=== PATIENT | male | born 1975 | race Caucasian/White ===

== ENCOUNTER 2022-06-01 16:39 | Outpatient (CLI) | payer OTHER, SELFPAY ==
[2022-06-01 21:31] LABS: Basophils Absolute Auto 0.03 K/uL (0.00-0.30); Basophils Percent Auto 0.4 % (0.0-3.0); Eosinophils Absolute Auto 0.12 K/uL (0.00-0.50); Eosinophils Percent Auto 1.6 % (0.0-7.0); Hematocrit 36.7 % (37.0-53.0); Hemoglobin* 12.4 gm/dL (13.5-17.5); Immature Granulocytes Abs Auto 0.01 K/uL (0.00-0.30); Lymphocytes Absolute Auto 2.69 K/uL (0.90-2.90); Mean Corpuscular HGB Conc 34 gm/dL (32-36); Mean Corpuscular Hemoglobin 31 pg (26-34); Mean Corpuscular Volume 91 fL (80-100); Monocytes Percent Auto 6.9 % (0.0-11.0); Neutrophils Absolute Auto 4.31 K/uL (1.7-7.0); Platelet Count* 215 K/uL (140-440); RDW Coefficient of Variation % 11.9 % (11.5-15.5); Red Blood Count 4.04 m/uL (4.30-5.90); White Blood Count* 7.69 K/uL (4.50-11.00)
[2022-06-01 21:48] LABS: Slide Review Reflex No
== END 2022-06-01 16:40 | disposition home or self-care (01) ==
LOC: KYNREF 16:46
PROVIDERS: PCP Family Medicine; Visit Provider Nurse Practitioner Family
DX: R10.31 Right lower quadrant pain (principal)
CPT/HCPCS: 36415; 85025

== ENCOUNTER 2022-07-16 08:17 | Outpatient (CLI) | payer OTHER, SELFPAY ==
--- OUTSIDE RECORDS SUMMARY | 2022-07-16 08:22 | XMS_ITS | Clinical Summary ---
:1975 Author Organization [facility] [place] [address] Care Team Providers Name Role Phone Nonstaff, Doctor Unavailable Unavailable Andrews Wright MD Primary Care Provider Allergies Active Allergy Reactions Severity Noted Date Comments Cephalosporins *Unknown 12/19/2013 Cephalexin Rash 10/05/2006 Medications Medication Sig Dispensed Refills Start Date End Date Status IBUPROFEN 800 MG TAB prn 0 02/15/2007 Active OXYCODONE-ACETAMINOP take 1 tablet by 0 02/15/2007 Active HEN 5 MG-325 MG TAB oral route every 6 hours as needed ATENOLOL 50 MG TAB take 1 tablet (50mg) 30 0 02/15/2007 Active by oral route once daily lisinopril Take 10 mg by mouth 0 Active (PRINIVIL; ZESTRIL) once daily. 10 mg Indications: tabletIndications: HYPERTENSION hypertension PRAVASTATIN SODIUM Take by mouth. 0 Active (PRAVASTATIN ORAL) traMADol (ULTRAM) 50 Take 50 mg by mouth 0 Active mg tablet every 6 hours if needed. INDOMETHACIN ORAL Take by mouth. 0 Active diazepam (VALIUM) 5 Take 1 tablet by 6 tablet 0 12/19/2013 Active mg tablet mouth at bedtime. diazepam (VALIUM) 5 Take 1 tablet by 6 tablet 0 03/23/2015 Active mg mouth 3 times daily tabletIndications: if needed for Muscle Right-sided low back Spasm. pain without sciatica traMADol (ULTRAM) 50 Take 1 tablet by 6 tablet 0 03/23/2015 Active mg mouth every 6 hours tabletIndications: if needed for Pain. Right-sided low back pain without sciatica Active Problems Not on file Family History Medical History Relation Name Comments Hypertension Father Hypertension Paternal Grandmother Relation Name Status Comments Father Paternal Grandmother Social History Tobacco Use Types Packs/Day Years Used Date Current Every Day Smoker Cigarettes 0.5 Sta rted: 10/21/1992 Alcohol Use Standard Drinks/Week Comments Not Asked 0 (1 standard drink = 0.6 oz pure alcoho l) Sex Assigned at Date Recorded Not on file Obstetrics History Last Filed Vital Signs Vital Sign Reading Time Taken Comments Blood Pressure 150/97 01/02/2018 8:00 PM CDT Pulse 106 01/02/2018 8:05 PM CDT Temperature 36.5 ??C (97.7 ??F) 01/02/2018 5:07 PM CDT Respiratory Rate 16 01/02/2018 8:00 PM CDT Oxygen Saturation 98% 01/02/2018 8:05 PM CDT Inhaled Oxygen Concentration - - Weight 127 kg (280 lb) 01/02/2018 5:07 PM CDT Height 182.9 cm (6') 01/02/2018 5:07 PM CDT Body Mass Index 37.97 01/02/2018 5:07 PM CDT Plan of Treatment Health Maintenance Due Date Last Done Comments COVID-19 vaccine series (#1) 04/01/1976 Tdap 1986 Depression screening for age 12+ 1987 BMI (ht and wt on same day) for age 18+ 1993 Hepatitis C screening for age 18-79 1993 Tetanus booster 1995 Colonoscopy through age 75 2020 Lipids for age 45-75 2020 Influenza for age 9-49 06/03/2022 Results Not on filefrom Last 3 Months Insurance Payer Benefit Plan Subscriber ID Effective Dates Phone Address Type / Group WC WORKERS WC 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 [id number] Effective for [phone] [address] COMP COMP all dates [address] [place] [address] HEALTH HP [id number] 2015-Presen [address] [place] [address] [employer]UE [employer]OSS BL[employer] OF [id number] 2014-[place] [address] [address] [place] [address] (Home) [place] [id number] Chun Nash Personal/Family Self [address] (Home) [place] [id number] [employer] Workers Comp Self 1975 [address] (Home) [place] [address] [employer] Workers Comp Self 1975 [address] [facility] ([place] [place] [address] 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
[2022-07-16 15:53] LABS: Hematocrit 37.9 % (37.0-53.0); Hemoglobin* 12.8 gm/dL (13.5-17.5); Mean Corpuscular HGB Conc 34 gm/dL (32-36); Mean Corpuscular Hemoglobin 31 pg (26-34); Mean Corpuscular Volume 92 fL (80-100); Platelet Count* 207 K/uL (140-440); Red Blood Count 4.12 m/uL (4.30-5.90); White Blood Count* 6.31 K/uL (4.50-11.00)
[2022-07-16 15:55] LABS: Albumin* 4.9 g/dL (3.3-5.0); Chloride* 102 mmol/L (96-114); Slide Review Reflex No
[2022-07-16 15:56] LABS: Potassium* 4.5 mmol/L (3.6-5.1); Sodium* 137 mmol/L (135-149)
[2022-07-16 15:58] LABS: Alanine Aminotransferase* 33 U/L (4-50); Alkaline Phosphatase* 76 U/L (40-150); Aspartate Amino Transferase* 26 U/L (12-35); Bilirubin Total* 0.4 mg/dL (0.1-1.5); Blood Urea Nitrogen* 23 mg/dL (5-24); Carbon Dioxide* 23 mmol/L (20-32); Cholesterol* 178 mg/dL (90-199); Estimated Glomerular Filt Rate 94 ml/min; Glucose* 135 mg/dL (60-115); Total Protein* 7.3 g/dL (6.0-8.3)
[2022-07-16 15:59] LABS: Calcium* 9.8 mg/dL (8.4-10.6); HDL Cholesterol* 33 mg/dL (>=40); LDL Cholesterol Calculated 99 mg/dL (<100); Triglycerides* 229 mg/dL (40-149)
== END 2022-07-16 08:18 | disposition home or self-care (01) ==
PROVIDERS: PCP Family Medicine; Visit Provider Family Medicine
DX: Z00.00 Encounter for general adult medical examination without abnormal findings (principal); E78.5 Hyperlipidemia, unspecified
CPT/HCPCS: 36415; 80053; 80061; 85027

== ENCOUNTER 2022-07-29 14:47 | Outpatient (CLI) | payer OTHER, SELFPAY ==
--- OUTSIDE RECORDS SUMMARY | 2022-07-29 14:50 | XMS_ITS | Clinical Summary ---
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
[2022-07-29 22:30] LABS: Creatinine Urine 231.8 mg/dL
[2022-07-29 22:32] LABS: Microalbumin Creatinine Ratio 0 mg/g (0-30); Microalbumin Urine 1 mg/dL
== END 2022-07-29 14:48 | disposition home or self-care (01) ==
LOC: LKVREF 14:48
PROVIDERS: PCP Family Medicine; Visit Provider Family Medicine
DX: Z00.00 Encounter for general adult medical examination without abnormal findings (principal); E11.9 Type 2 diabetes mellitus without complications; I10 Essential (primary) hypertension
CPT/HCPCS: 82043; 82570

== ENCOUNTER 2023-01-24 16:00 | Outpatient (CLI) | payer OTHER, SELFPAY ==
--- OUTSIDE RECORDS SUMMARY | 2023-01-24 16:07 | XMS_ITS | Continuity of Care Document ---
Author Name Unknown Organization [facility] alissa Address [address] [facility] [place] [address] Phone Care Team Providers Care Salesperson Women'S Dresses Name Role Phone Murray Garay Unavailable Unavailable Allergies, Adverse Reactions, Alerts Substance Reaction Status Criticality CEPHALEXIN MONOHYDRATE RashFever Active No In formation Medications Medication Instructions Dosage Effective Dates (start - stop) Status Comments hydrocodone 5 mg-acetaminophen 325 mg tablet take 1 tablet by oral route every 4 hours as needed for chronic pain; max 6/day - Active Fill when able OMEPRAZOLE (unknown strength) take 1 capsule by oral route every day before a meal Not Available - Active tizanidine 4 mg tablet take 1 tablet by ORAL route 2 times every day as needed, max 2/day 4 MG - Active pravastatin 40 mg tablet take 1 tablet by oral route every day 40 MG - Active Wellbutrin SR 100 mg tablet, 12 hr sustained-releas e take 1 tablet by oral route 2 times every day 100 MG - Active metformin ER 500 mg tablet,extended release 24 hr take 1 tablet by oral route every day with the evening meal 500 MG - Active diazepam 5 mg tablet take 1 tablet by ORAL route 2 times every day prn 5 MG - Active lisinopril 20 mg-hydrochloroth iazide 12.5 mg tablet take 1 tablet by oral route every day 1.00 tablet - Active hydrocodone 5 mg-acetaminophen 325 mg tablet take 1 tablet by oral route every 4 hours as needed for chronic pain; max 6/day - No Longer Active Fill when able Procedures Procedure Date Foll-up eval q3mo opiod tx OFFICE VISIT, EST TELEMEDICINE 23 Foll-up eval q3mo opiod tx OFFICE/OUTPATIENT VISIT, EST Drug Urine Toxology With Chromatography Drug test def 8-14 classes Foll-up eval q3mo opiod tx OFFICE VISIT, EST TELEMEDICINE Foll-up eval q3mo opiod tx OFFICE VISIT, EST TELEMEDICINE Drug Urine Toxology With Chromatography Drug test def 8-14 classes Foll-up eval q3mo opiod tx OFFICE/OUTPATIENT VISIT, EST Foll-up eval q3mo opiod tx OFFICE VISIT, EST TELEMEDICINE Foll-up eval q3mo opiod tx OFFICE VISIT, EST TELEMEDICINE Foll-up eval q3mo opiod tx OFFICE/OUTPATIENT VISIT, EST Drug test def 8-14 classes Drug Urine Toxology With Chromatography Foll-up eval q3mo opiod tx OFFICE VISIT, EST TELEMEDICINE Foll-up eval q3mo opiod tx OFFICE VISIT, EST TELEMEDICINE Foll-up eval q3mo opiod tx OFFICE VISIT, EST TELEMEDICINE Foll-up eval q3mo opiod tx OFFICE VISIT, EST TELEMEDICINE 22 Foll-up eval q3mo opiod tx OFFICE VISIT, EST TELEMEDICINE Foll-up eval q3mo opiod tx OFFICE/OUTPATIENT VISIT, EST Drug Urine Toxology With Chromatography Drug test def 8-14 classes Foll-up eval q3mo opiod tx OFFICE VISIT, EST TELEMEDICINE Feb-04-20 22 Foll-up eval q3mo opiod tx OFFICE VISIT, EST TELEMEDICINE Foll-up eval q3mo opiod tx OFFICE VISIT, EST TELEMEDICINE Foll-up eval q3mo opiod tx OFFICE VISIT, EST TELEMEDICINE Foll-up eval q3mo opiod tx OFFICE VISIT, EST TELEMEDICINE Foll-up eval q3mo opiod tx OFFICE VISIT, EST TELEMEDICINE Foll-up eval q3mo opiod tx OFFICE VISIT, EST TELEMEDICINE Drug Urine Toxology With Chromatography Foll-up eval q3mo opiod tx OFFICE/OUTPATIENT VISIT, EST Foll-up eval q3mo opiod tx OFFICE VISIT, EST TELEMEDICINE OFFICE VISIT, EST TELEMEDICINE Foll-up eval q3mo opiod tx Foll-up eval q3mo opiod tx OFFICE VISIT, EST TELEMEDICINE OFFICE VISIT, EST TELEMEDICINE Foll-up eval q3mo opiod tx OFFICE VISIT, EST TELEMEDICINE Foll-up eval q3mo opiod tx Foll-up eval q3mo opiod tx OFFICE VISIT, EST TELEMEDICINE Foll-up eval q3mo opiod tx OFFICE VISIT, EST TELEMEDICINE OFFICE VISIT, EST TELEMEDICINE Foll-up eval q3mo opiod tx OFFICE VISIT, EST TELEMEDICINE Foll-up eval q3mo opiod tx OFFICE VISIT, EST TELEMEDICINE Foll-up eval q3mo opiod tx OFFICE VISIT, EST TELEMEDICINE Foll-up eval q3mo opiod tx OFFICE VISIT, EST TELEMEDICINE Davy-17-20 20 Foll-up eval q3mo opiod tx OFFICE VISIT, EST TELEMEDICINE Foll-up eval q3mo opiod tx Foll-up eval q3mo opiod tx OFFICE/OUTPATIENT VISIT, EST OFFICE VISIT, EST TELEMEDICINE Foll-up eval q3mo opiod tx OFFICE VISIT, EST TELEMEDICINE Drug test def 15-21 classes Drug Urine Toxology With Chromatography Foll-up eval q3mo opiod tx OFFICE/OUTPATIENT VISIT, EST OFFICE/OUTPATIENT VISIT, EST Foll-up eval q3mo opiod tx OFFICE/OUTPATIENT VISIT, EST Foll-up eval q3mo opiod tx OFFICE/OUTPATIENT VISIT, EST Foll-up eval q3mo opiod tx OFFICE/OUTPATIENT VISIT, EST OFFICE/OUTPATIENT VISIT, EST OFFICE/OUTPATIENT VISIT, EST OFFICE/OUTPATIENT VISIT, EST OFFICE/OUTPATIENT VISIT, EST Lidocaine injection Inj, durolane RT Major Joint Or Bursa Inj With Ultraso und OFFICE/OUTPATIENT VISIT, EST OFFICE/OUTPATIENT VISIT, EST OFFICE CONSULTATION Drug test def 22+ classes Drug Urine Toxology With Chromatography Advance Directives Directive Yes / No Effective Date File Name No Information Encounters Encounter Description Practice Location Reason(s) For Visit Diagnoses Date Provider Providers Copied on Encounter OFFICE VISIT, EST TELEMEDICINE [facility], [address] [place], [place], [id number] , [place] tel:[phone] [facility] [place] right knee pain (chief complaint) Other chronic painOther chondrocalcinosis , right kneeUnilateral primary osteoarthritis, right kneePain in right kneeCurrent tear of meniscus of left knee, sequelaLong term (current) use of opiate analgesic Apr-0 4-202 3 Jonelle Gao. [address] [place] [address] [address], [place], [place], [id number] , [place]. tel: [phone] Referring Provider: Andrews Wright [facility] [address], [place], [address]. tel:[phone] OFFICE/OUTPAT IENT VISIT, [facility], [address], [place], [id number] , [place] tel: [phone] [facility] right knee pain (chief complaint) Other chronic painOther chondrocalcinosis , right kneeUnilateral primary osteoarthritis, right kneePain in right kneeCurrent tear of meniscus of left knee, sequelaLong term (current) use of opiate analgesic Dec-0 3 Jonelle Gao. [address] [place] [address] [address], [place], [id number] , [place]. tel: [phone] Referring Provider: Andrews Wright [facility] [address], [place], [address]. tel:[phone] [facility], [address], [place], [id number] , [place] tel: [phone] [facility] No Information 0 3 Jonelle Gao. [address] [place] [address] [address], [place], [id number] , [place]. tel: [phone] Referring Provider: Andrews Wright [facility] [address], [place], [address]. tel:[phone] OFFICE VISIT, EST TELEMEDICINE [facility], [address], [place], [id number] , [place] tel: [phone] [facility] [place] right knee pain (chief complaint) Other chronic painOther chondrocalcinosis , right kneeUnilateral primary osteoarthritis, right kneePain in right kneeCurrent tear of meniscus of left knee, sequelaLong term (current) use of opiate analgesic Nov-0 3 Jonelle Gao[address] [place] [address] [address], [place], [place], [id number] , [place]. tel: [phone] Referring Provider: Caleb Castro, [address] [place], [address]. tel:[phone] OFFICE VISIT, [facility] TELEMEDICINE [facility], [address] [place] [address], [id number] , [place] tel: [phone] [facility] right knee pain (chief complaint) Other chronic painOther chondrocalcinosis , right kneeUnilateral primary osteoarthritis, right kneePain in right kneeCurrent tear of meniscus of left knee, sequelaLong term (current) use of opiate analgesic Oct- 3 Sal Murray. [address] [place] [address] [address], [place], [place], [id number] , [place]. tel: [phone] [facility], [address] [place] [address], [id number] , [place] tel: [phone] [facility] No Information 2 Sal Murray. [address] [place] [address] [address], [place], [place], [id number] , [place]. tel: [phone] OFFICE/OUTPAT IENT VISIT, [facility], [address] [place] [address], [id number] , [place] tel: [phone] [facility] right knee pain (chief complaint) Other chronic painOther chondrocalcinosis , right kneeUnilateral primary osteoarthritis, right kneePain in right kneeCurrent tear of meniscus of left knee, sequelaLong term (current) use of opiate analgesic 2 Sal Murray. [address] [place] [address] [address], [place], [place], [id number] , [place]. tel: [phone] Referring Provider: Andrews Wright, [facility] [address], [place], [address]. tel:[phone] OFFICE VISIT, EST TELEMEDICINE [facility], [address] [place] [address], [id number] , [place] tel: [phone] [facility] [place] right knee pain (chief complaint) Other chronic painOther chondrocalcinosis , right kneeUnilateral primary osteoarthritis, right kneePain in right kneeCurrent tear of meniscus of left knee, sequelaLong term (current) use of opiate analgesic Nov-0 2 Jonelle Gao. [address] [place] [address] [address], [place], [place], [id number] , [place]. tel: [phone] Referring Provider: Caleb Castro, [address] [place], [address]. tel:[phone] OFFICE VISIT, [facility] TELEMEDICINE [facility], [address] [place] [address], [id number] , [place] tel: [phone] [facility] right knee pain (chief complaint) Other chronic painOther chondrocalcinosis , right kneeUnilateral primary osteoarthritis, right kneePain in right kneeCurrent tear of meniscus of left knee, sequelaLong term (current) use of opiate analgesic Jul-0 2 Jonelle Gao. [address] [place] [address] [address], [place], [place], [id number] , [place]. tel: [phone] OFFICE/OUTPAT IENT VISIT, [facility], [address] [place] [address], [id number] , [place] tel: [phone] [facility] right knee pain (chief complaint) Other chronic painOther chondrocalcinosis , right kneeUnilateral primary osteoarthritis, right kneePain in right kneeCurrent tear of meniscus of left knee, sequelaLong term (current) use of opiate analgesic Sep-0 2 Jonelle Gao. [address] [place] [address] [address], [place], [place], [id number] , [place]. tel: [phone] Referring Provider: Andrews Wright, [facility] [address], [place], [address]. tel:[phone] [facility], [address], [place], [id number] , [place] tel: [phone] [facility] No Information Sep-0 2 Jonelle Gao. [address] [place] [address] [address], [place], [place], [id number] , [place]. tel: [phone] Referring Provider: Andrews Wright, [facility] [address], [place], [address]. tel:[phone] OFFICE VISIT, EST TELEMEDICINE [facility], [address] [place] [address], [id number] , [place] tel: [phone] [facility] right knee pain (chief complaint) Other chronic painOther chondrocalcinosis , right kneeUnilateral primary osteoarthritis, right kneePain in right kneeCurrent tear of meniscus of left knee, sequelaLong term (current) use of opiate analgesic May- 2 Jonelle Gao. [address] [place] [address], [place], [place], [id number] , [place]. tel: [phone] OFFICE VISIT, EST [facility], [address] [place] [address], [id number] , [place] tel: [phone] [facility] right knee pain (chief complaint) Other chronic painOther chondrocalcinosis , right kneeUnilateral primary osteoarthritis, right kneePain in right kneeCurrent tear of meniscus of left knee, sequelaLong term (current) use of opiate analgesic Apr-0 2 Sal Murray. [address] [place] [address] [address], [place], [place], [id number] , [place]. tel: [phone] OFFICE VISIT, EST [facility], [address] [place] [address], [id number] , [place] tel: [phone] [facility] Knee Pain (chief complaint) Other chronic painOther chondrocalcinosis , right kneeUnilateral primary osteoarthritis, right kneeCurrent tear of meniscus of left knee, sequelaLong term (current) use of opiate analgesicPain in right knee Jose- 2 Sal Murray. [address] [place] [address] [address], [place], [place], [id number] , [place]. tel: [phone] Referring Provider: Caleb Castro, [address] [place], [address]. tel: [phone] OFFICE VISIT, [facility] TELEMEDICINE [facility], [address] [place] [address], [id number] , [place] tel: [phone] [facility] bilateral knee pain (chief complaint) Other chronic painOther chondrocalcinosis , right kneeUnilateral primary osteoarthritis, right kneeCurrent tear of meniscus of left knee, sequelaLong term (current) use of opiate analgesic May-0 2 Jonelle Gao. [address] [place] [address] [address], [place], [place], [id number] , [place]. tel: [phone] OFFICE VISIT, [facility], [address] [place] [address], [id number] , [place] tel: [phone] [facility] bilateral knee pain (chief complaint) Other chronic painOther chondrocalcinosis , right kneeUnilateral primary osteoarthritis, right kneeCurrent tear of meniscus of left knee, sequelaLong term (current) use of opiate analgesic Apr-0 - 2 Sal Murray. [address] [place] [address] [address], [place], [place], [id number] , [place]. tel: [phone] Referring Provider: Caleb Castro, [address] [place] [address], [address]. tel:[phone] OFFICE/OUTPAT IENT VISIT, [facility], [address] [place] [address], [id number] , [place] tel: [phone] [facility] bilateral knee pain (chief complaint) Other chronic painUnilateral primary osteoarthritis, right kneeOther chondrocalcinosis , right kneeLong term (current) use of opiate analgesicCurrent tear of meniscus of left knee, sequela Mar-0 2 Jonelle Gao. [address] [place] [address] [address], [place], [place], [id number] , [place]. tel: [phone] Referring Provider: Andrews Wright, [facility] [address], [place], [address]. tel:[phone] [facility], [address] [place] [address], [id number] , [place] tel: [phone] [facility] [place] No Information 2 Jonelle Gao. [address] [place] [address] [address], [place], [place], [id number] , [place]. tel: [phone] Referring Provider: Caleb Castro, [address] [place] [address], [address]. [phone] OFFICE VISIT, EST TELEMEDICINE [facility], [address] [place] [address], [id number] , [place] tel: [phone] [facility] bilateral knee pain (chief complaint) Other chronic painUnilateral primary osteoarthritis, right kneeOther chondrocalcinosis , right kneeLong term (current) use of opiate analgesicCurrent tear of meniscus of left knee, sequela 2 Sal Murray. [address] [place] [address] [address], [place], [place], [id number] , [place]. tel: [phone] Referring Provider: Caleb Castro, [address] [place] [address], [address]. tel:[phone] OFFICE VISIT, EST TELEMEDICINE [facility], [address] [place] [address], [id number] , [place] tel: [phone] [facility] Knee Pain (chief complaint) Other chronic painUnilateral primary osteoarthritis, right kneeOther chondrocalcinosis , right kneeLong term (current) use of opiate analgesicCurrent tear of meniscus of left knee, sequela 2 Jonelle Gao. [address] [place] [address] [address], [place], [place], [id number] , [place]. tel: [phone] OFFICE VISIT, EST TELEMEDICINE [facility], [address] [place] [address], [id number] , [place] tel: [phone] [facility] bilateral knee pain (chief complaint) Other chronic painUnilateral primary osteoarthritis, right kneeOther chondrocalcinosis , right kneeLong term (current) use of opiate analgesicCurrent tear of meniscus of left knee, sequela 1 Jonelle Gao. [address] [place] [address] [address], [place], [id number] , [place]. tel: [phone] OFFICE VISIT, EST TELEMEDICINE [facility], [address] [place] [address], [id number] , [place] tel: [phone] [facility] bilateral knee pain (chief complaint) Other chronic painUnilateral primary osteoarthritis, right kneeOther chondrocalcinosis , right kneeLong term (current) use of opiate analgesic 1 Salkushal Gao. [address] [place] [address] [address], [place], [id number] , [place]. tel: [phone] Referring Provider: Caleb Castro, [address] [place] [address], [address]. tel:[phone] OFFICE VISIT, EST TELEMEDICINE [facility], [address] [place] [address], [id number] , [place] tel: [phone] [facility] [place] right knee pain (chief complaint) Other chronic painUnilateral primary osteoarthritis, right kneeOther chondrocalcinosis , right kneeLong term (current) use of opiate analgesic Oct-0 - 1 Saljorge Gao. [address] [place] [address] [address], [place], [id number] , [place]. tel: [phone] OFFICE VISIT, EST TELEMEDICINE [facility], [address] [place] [address], [id number] , [place] tel: [phone] [facility] right knee pain (chief complaint) Other chronic painUnilateral primary osteoarthritis, right kneeOther chondrocalcinosis , right kneeLong term (current) use of opiate analgesic Sep- 0- 1 Salkushal Gao. [address] [place] [address] [address], [place], [id number] , [place]. tel: [phone] Referring Provider: Caleb Castro, [address] [place] [address], [address]. tel:[phone] OFFICE VISIT, EST TELEMEDICINE [facility], [address] [place] [address], [id number] , [place] tel: [phone] [facility] right knee pain (chief complaint) Other chondrocalcinosis , right kneeUnilateral primary osteoarthritis, right kneeOther chronic painLong term (current) use of opiate analgesic 1 Sal Murray. [address] [place] [address] [address], [place], [place], [id number] , [place]. tel: [phone] Referring Provider: Caleb Castro, [address] [place] [address], [address]. tel:[phone] [facility], [address] [place] [address], [id number] , [place] tel: [phone] [facility] No Information 1 Nicolas Ellis. [address] [place] [address], [id number] , [place]. tel: [phone] [facility], [address] [place] [address], [id number] , [place] tel: [phone] [facility] No Information 1 Jonelle Gao. [address] [place] [address] [address], [place], [place], [id number] , [place]. tel: [phone] Referring Provider: Caleb Castro, [address] [place] [address], [address]. tel:[phone] OFFICE/OUTPAT IENT VISIT, [facility], [address] [place] [address], [id number] , [place] tel: [phone] [facility] right knee pain (chief complaint) Other chondrocalcinosis , right kneeUnilateral primary osteoarthritis, right kneeOther chronic painLong term (current) use of opiate analgesic 1 Jonelle Gao. [address] [place] [address] [address], [place], [place], [id number] , [place]. tel: [phone] Referring Provider: Andrews Wright [facility] [address], [place], [address]. tel:[phone] OFFICE VISIT, EST TELEMEDICINE [facility], [address] [place] [address], [id number] , [place] tel: [phone] [facility] [place] Knee Pain (chief complaint) Other chondrocalcinosis , right kneeUnilateral primary osteoarthritis, right kneeOther chronic painLong term (current) use of opiate analgesic Jose-0 1 Saljorge Gao. [facility] [address], [place], [place], [id number] , [place]. tel: [phone] Referring Provider: Caleb Castro, [address] [place] [address], [address]. tel:[phone] OFFICE VISIT, EST TELEMEDICINE [facility], [address] [place] [address], [id number] , [place] tel:[phone] [facility] Knee Pain (chief complaint) Other chondrocalcinosis , right kneeUnilateral primary osteoarthritis, right kneeOther chronic painLong term (current) use of opiate analgesic May-0 1 Sal Murray. [address] [place] [address] [address], [place], [place], [id number] , [place]. tel:[phone] Referring Provider: Caleb Castro, [address] [place] [address], [address]. [phone] OFFICE VISIT, EST TELEMEDICINE [facility], [address] [place] [address], [id number] , [place] tel: [phone] [facility] Knee Pain (chief complaint) Other chondrocalcinosis , right kneeUnilateral primary osteoarthritis, right kneeOther chronic painLong term (current) use of opiate analgesic Apr-0 1 Saljorge Gao. [address] [place] [address] [address], [place], [place], [id number] , [place]. tel:[phone] Referring Provider: Caleb Castro, [address] [place] [address], [address]. tel:[phone] OFFICE VISIT, EST TELEMEDICINE [facility], [address] [place] [address], [id number] , [place] tel:[phone] [facility] Knee Pain (chief complaint) Other chondrocalcinosis , right kneeUnilateral primary osteoarthritis, right kneeOther chronic painLong term (current) use of opiate analgesic Dec-0 1 Saljorge Gao. [address] [place] [address] [address], [place], [place], [id number] , [place]. [phone] Referring Provider: Caleb Castro, [address] [place] [address], [address]. [phone] OFFICE VISIT, EST TELEMEDICINE [facility], [address] [place] [address], [id number] , [place] tel:[phone] [facility] Knee Pain (chief complaint) Other chondrocalcinosis , right kneeUnilateral primary osteoarthritis, right kneeOther chronic painLong term (current) use of opiate analgesic Nov- 1 Salojrge Gao. [address] [place] [address] [address], [place], [place], [id number] , [place]. [phone] Referring Provider: aCleb Castro, [address] [place] [address], [address]. [phone] OFFICE VISIT, EST TELEMEDICINE [facility], [address] [place] [address], [id number] , [place] tel:[phone] [facility] Knee Pain (chief complaint) Other chondrocalcinosis , right kneeUnilateral primary osteoarthritis, right kneeOther chronic painLong term (current) use of opiate analgesic Oct-0 1 Jonelle Gao. [address] [place] [address] [address], [place], [place], [id number] , [place]. tel:[phone] Referring Provider: Caleb Castro, [address] [place] [address], [address]. [phone] OFFICE VISIT, EST TELEMEDICINE [facility], [address] [place] [address], [id number] , [place] [phone] [facility] K[facility] Pain (chief complaint) Other chondrocalcinosis , right kneeUnilateral primary osteoarthritis, right kneeOther chronic painLong term (current) use of opiate analgesic Sep-0 0 Sal Murray. [address] [place] [address] [address], [place], [place], [id number] , [place]. [phone] Referring Provider: Caleb Castro, [address] [place] [address], [id number]. tel:[phone] OFFICE VISIT, EST TELEMEDICINE [facility], [address] [place] [address], [id number] , [place] [phone] [facility] Knee Pain (chief complaint) Other chondrocalcinosis , right kneeUnilateral primary osteoarthritis, right kneeOther chronic painLong term (current) use of opiate analgesic Nov-0 0 Sal Murray. [address] [facility] [address], [place], [place], [id number] , [place]. [phone] Referring Provider: Caleb Castro, [address] [place] [address], [address]. tel:[phone] OFFICE VISIT, EST TELEMEDICINE [facility], [address] [place] [address], [id number] , [place] [phone] [facility] Knee Pain (chief complaint) Other chondrocalcinosis , right kneeUnilateral primary osteoarthritis, right kneeOther chronic painLong term (current) use of opiate analgesic 0 Sal Murray. [address], [place], [place], [id number] , [place]. [phone] Referring Provider: Caleb Castro, [address] [place] [address], [address]. tel:[phone] OFFICE VISIT, EST TELEMEDICINE [facility], [address] [place] [address], [id number] , [place] [phone] [facility] Knee Pain (chief complaint) Other chondrocalcinosis , right kneeUnilateral primary osteoarthritis, right kneeOther chronic painLong term (current) use of opiate analgesic Jun- 0 Sal Murray. [address] [facility] [address], [place], [place], [id number] , [place]. [phone] Referring Provider: Caleb Castro, [address] [place] [address], [address]. [phone] OFFICE VISIT, [facility], [address] [place] [address], [id number] , [place] tel:[phone] [facility] Knee Pain (chief complaint) Other chondrocalcinosis , right kneeUnilateral primary osteoarthritis, right kneeOther chronic painLong term (current) use of opiate analgesic 0 Sal Murray. [address] [place] [address] [address], [place], [place], [id number] , [place]. tel:[phone] Referring Provider: Caleb Castro, [address] [place] [address], [address]. tel:[phone] OFFICE VISIT, [facility], [address] [place] [address], [id number] , [place] tel:[phone] [facility] Knee Pain (chief complaint) Other chondrocalcinosis , right kneeUnilateral primary osteoarthritis, right kneeOther chronic painLong term (current) use of opiate analgesic 0 Sal Murray. [address] [place] [address] [address], [place], [place], [id number] , [place]. tel:[phone] Referring Provider: Caleb Castro, [address] [place] [address], [address]. [phone] OFFICE VISIT, [facility], [address] [place] [address], [id number] , [place] tel:[phone] [facility] right knee pain (chief complaint) Other chondrocalcinosis , right kneeUnilateral primary osteoarthritis, right kneeOther chronic painLong term (current) use of opiate analgesic 0 Sal Murray. [address] [place] [address] [address], [place], [place], [id number] , [place]. tel:[phone] Referring Provider: Caleb Castro, [address] [place] [address], [address]. tel:[phone] OFFICE/OUTPAT IENT VISIT, [facility], [address] [place] [address], [id number] , [place] tel:[phone] [facility] right knee pain (chief complaint) Other chondrocalcinosis , right kneeUnilateral primary osteoarthritis, right kneeOther chronic painLong term (current) use of opiate analgesic May-0 8- 0 Sal Murray. [address] [facility] [address], [place], [place], [id number] , [place]. tel:[phone] Referring Provider: Caleb Castro, [address] [place] [address], [address]. [phone] OFFICE VISIT, [facility], [address] [place] [address], [id number] , [place] tel:[phone] [facility] right knee pain (chief complaint) Other chondrocalcinosis , right kneeUnilateral primary osteoarthritis, right kneeOther chronic painLong term (current) use of opiate analgesic Apr-1 0- 0 Sal Murray. [address] [place] [address] [address], [place], [place], [id number] , [place]. tel:[phone] Referring Provider: Caleb Castro, [address] [place] [address], [address]. [phone] OFFICE/OUTPAT IENT VISIT, [facility], [address] [place] [address], [id number] , [place] tel:[phone] [facility] right knee pain (chief complaint) light bulb replacer (current) use of opiate analgesicOther chondrocalcinosis , right kneePain in right kneeUnilateral primary osteoarthritis, right kneeOther chronic pain Dec- 3- 0 Sal Murray. [facility] [address], [place], [place], [id number] , [place]. [phone] Referring Provider: Andrews Wright, [facility] [address], [place], [address]. [phone] OFFICE/OUTPAT IENT VISIT, [facility], [address] [place] [address], [id number] , [place] [phone] [facility] right knee pain (chief complaint) intermediate (current) use of opiate analgesicOther chondrocalcinosis , right kneePain in right kneeUnilateral primary osteoarthritis, right kneeOther chronic pain 0 Jonelle Gao. [address] [facility] [address], [place], [place], [id number] , [place]. tel:[phone] Referring Provider: Andrews Wright [facility] [address], [place], [address]. tel:[phone] OFFICE/OUTPAT IENT VISIT, [facility], [address] [place], [place], [id number] , [place] tel: [phone] [facility] right knee pain (chief complaint) intermediate (current) use of opiate analgesicUnilater al primary osteoarthritis, right kneePain in right kneeOther chondrocalcinosis , right kneeOther chronic pain 0 Jonelle Gao. [address] [facility] [address], [place], [place], [id number] , [place]. tel:[phone] Referring Provider: Andrews Wright [facility] [address], [place], [address]. tel:[phone] OFFICE/OUTPAT IENT VISIT, [facility], [address] [place], [place], [id number] , [place] tel:[phone] [facility] right knee pain (chief complaint) light bulb replacer (current) use of opiate analgesicUnilater al primary osteoarthritis, right kneePain in right kneeOther chondrocalcinosis , right kneeOther chronic pain 201 9 Salkushal Gao. [address] [place] [address] [address], [place], [place], [id number] , [place]. tel:[phone] Referring Provider: Andrews Wright [facility] [address], [place], [address]. tel:[phone] OFFICE/OUTPAT IENT VISIT, [facility], [address] [place], [place], [id number] , [place] tel:[phone] [facility] Knee Pain (chief complaint) light bulb replacer (current) use of opiate analgesicOther chondrocalcinosis , right kneePain in right kneeUnilateral primary osteoarthritis, right knee Nov- 5-201 9 Jonelle Gao. [address] [facility] [address], [place], [id number] , [place]. tel: [phone] Referring Provider: Andrews Wright [facility] [address], [place], [address]. tel:[phone] OFFICE/OUTPAT IENT VISIT, [facility], [address] [place], [place], [id number] , [place] tel: [phone] [facility] right knee pain (chief complaint) intermediate (current) use of opiate analgesicOther chondrocalcinosis , right kneeUnilateral primary osteoarthritis, right kneePain in right kneeOther chronic pain Oct- 8-201 9 Jonelle Gao. [address] [facility] [address], [place], [id number] , [place]. tel: [phone] Referring Provider: Andrews Wright [facility] [address], [place], [address]. tel:[phone] OFFICE/OUTPAT IENT VISIT, [facility], [address] [place] [address], [id number] , [place] tel: [phone] [facility] right knee pain (chief complaint) intermediate (current) use of opiate analgesicOther chondrocalcinosis , right kneePain in right kneeUnilateral primary osteoarthritis, right knee Sep-2 0-201 9 Jonelle Gao. [address] [facility] [address], [place], [id number] , [place]. tel: [phone] Referring Provider: Andrews Wright [facility] [address], [place], [address]. tel:[phone] OFFICE/OUTPAT IENT VISIT, [facility], [address] [place], [place], [id number] , [place] tel: [phone] [facility] right knee pain (chief complaint) Other chronic painUnilateral primary osteoarthritis, right kneeOther chondrocalcinosis , right kneeLong term (current) use of opiate analgesic 9 Saljorge Gao. [address] [facility] [address], [place], [id number] , [place]. tel: [phone] Referring Provider: Andrews Wright [facility] [address], [place], [address]. tel:[phone] OFFICE/OUTPAT IENT VISIT, [facility], [address] [place], [place], [id number] , [place] tel: [phone] [facility] right knee pain (chief complaint) Other chronic painUnilateral primary osteoarthritis, right kneeOther chondrocalcinosis , right kneeLong term (current) use of opiate analgesic 9 Sal Murray. [address] [facility] [address], [place], [place], [id number] , [place]. tel: [phone] Referring Provider: Andrews Wright [facility] [address], [place], [address]. tel:[phone] [facility], [address] [place], [place], [id number] , [place] tel: [phone] [facility] Unilateral primary osteoarthritis, right knee 9 Reynoldsprem Mackay. [facility], [address] [facility] [address], [place], [address], [place]. tel: [phone] Referring Provider: Andrews Wright [facility] [address], [place], [address]. tel:[phone] OFFICE/OUTPAT IENT VISIT, [facility], [address] [place], [place], [id number] , [place] tel: [phone] [facility] [place] right knee pain (chief complaint) Other chronic painUnilateral primary osteoarthritis, right kneeOther chondrocalcinosis , right kneeLong term (current) use of opiate analgesic 9 Saljorge Gao. [address] [facility] [address], [place], [id number] , [place]. tel:[phone] Referring Provider: Andrews Wright [facility] [address], [place], [address]. tel:[phone] OFFICE/OUTPAT IENT VISIT, EST [facility], [address] [place], [place], [id number] , [place] [phone] [facility] right knee pain (chief complaint) Other chondrocalcinosis , right kneeOther chronic painPain in right kneeLong term (current) use of opiate analgesicUnilater al primary osteoarthritis, right knee 9 Salkushal Gao. [address] [place] [address] [address], [place], [place], [id number] , [place]. tel:[phone] Referring Provider: Andrews Wright [facility] [address], [place], [address]. tel:[phone] OFFICE CONSULTATION [facility], [address] [place], [place], [id number] , [place] [phone] [facility] right knee pain (chief complaint) Other chronic painPain in right kneeOther chondrocalcinosis , right knee 9 Reynolds Thompson. [facility], [address] [facility] [address], [place], [address], [place]. tel:[phone] Referring Provider: [facility] [address], [place], [address]. tel:[phone] Family History Family Member Type Diagnosis Age At Onset No Information Payers Payer name Insurance type Covered green party ID Meng eveangel[facility]s) [facility] [id number] Social History Type Description Quantity Date Captured Comments Alcohol Use Details Unknown Caffeine Use Details Unknown Tobacco Use Status Smoking Status No Information Sex Male Chief Complaint And Reason For Visit From encounter dated '01/04/2023 15:00'. right knee pain (chief complaint). Description: Duration: chronic. Severity level is 7. It occurs constantly and is worsening. Location: right knee. Reason For Referral Reason For Referral No Information Plan Of Treatment Date Type Action Status Goal Tobacco Use. Due on due Goal AST (SGOT). Due on due Goal Review Allergy List. Due on due Goal Order Annual PT. Due on due Goal OARS. Due on due Goal GENERAL ASSEMBLER INSTALLER Scanned. Due on due Goal Unhealthy drug u se screening. Due on due Goal ALT (SGPT). Due on due Goal Creatinine. Due on due Goal STEAM HEATING INSTALLER Paperwork. Due on due Goal Weight. Due on d ue Goal Height. Due on d ue Goal UDT. Due on due Goal Hepatitis C scre ening. Due on due Goal Lipid panel. Due on due Goal Update Social Hi story. Due on due Goal PHQ-9. Due on du e Goal Medication Recon ciliation. Due on due Goal UDT. Due on due Goal Update Social Hi story. Due on due Goal ALT (SGPT). Due on due Goal Creatinine. Due on due Goal Hepatitis C scre ening. Due on due Goal Unhealthy drug u se screening. Due on due Goal Height. Due on d ue Goal GENERAL ASSEMBLER INSTALLER Scanned. Due on due Goal AST (SGOT). Due on due Goal Tobacco Use. Due on due Goal PHQ-9. Due on du e Goal Weight. Due on d ue Goal Medication Recon ciliation. Due on due Goal Order Annual PT. Due on due Goal STEAM HEATING INSTALLER Paperwork. Due on due Goal OARS. Due on due Goal Lipid panel. Due on due Goal Review Allergy List. Due on due Goal Tobacco Use. Due on due Goal Review Allergy List. Due on due Goal Update Social Hi story. Due on due Goal OARS. Due on due Goal GENERAL ASSEMBLER INSTALLER Scanned. Due on due Goal Weight. Due on d ue Goal Order Annual PT. Due on due Goal Lipid panel. Due on due Goal PHQ-9. Due on du e Goal Height. Due on d ue Goal Hepatitis C scre ening. Due on due Goal Creatinine. Due on due Goal AST (SGOT). Due on due Goal Medication Recon ciliation. Due on due Goal ALT (SGPT). Due on due Goal STEAM HEATING INSTALLER Paperwork. Due on due Goal Unhealthy drug u se screening. Due on due Goal UDT. Due on due Goal Medication Recon ciliation. Due on due Goal Update Social Hi story. Due on due Goal Hepatitis C scre ening. Due on due Goal Height. Due on d ue Goal Weight. Due on d ue Goal Tobacco Use. Due on due Goal OARS. Due on due Goal AST (SGOT). Due on due Goal UDT. Due on due Goal STEAM HEATING INSTALLER Paperwork. Due on due Goal GENERAL ASSEMBLER INSTALLER Scanned. Due on due Goal Unhealthy drug u se screening. Due on due Goal Creatinine. Due on due Goal ALT (SGPT). Due on due Goal Order Annual PT. Due on due Goal Review Allergy List. Due on due Goal Lipid panel. Due on due Goal PHQ-9. Due on du e Goal AST (SGOT). Due on due Goal OARS. Due on due Goal Creatinine. Due on due Goal ALT (SGPT). Due on due Goal Review Allergy List. Due on due Goal PHQ-9. Due on du e Goal UDT. Due on due Goal GENERAL ASSEMBLER INSTALLER Scanned. Due on due Goal Order Annual PT. Due on due Goal Medication Recon ciliation. Due on due Goal Tobacco Use. Due on 023 due Goal Weight. Due on d ue Goal Height. Due on d ue Goal Lipid panel. Due on 023 due Goal Update Social Hi story. Due on due Goal Hepatitis C scre ening. Due on due Goal Unhealthy drug u se screening. Due on due Goal STEAM HEATING INSTALLER Paperwork. Due on due Goal Order Annual PT. Due on due Goal UDT. Due on due Goal GENERAL ASSEMBLER INSTALLER Scanned. Due on due Goal AST (SGOT). Due on due Goal OARS. Due on due Goal Creatinine. Due on due Goal ALT (SGPT). Due on due Goal STEAM HEATING INSTALLER Paperwork. Due on due Goal Medication Recon ciliation. Due on due Goal Lipid panel. Due on due Goal Tobacco Use. Due on due Goal Unhealthy drug u se screening. Due on due Goal Review Allergy List. Due on due Goal Weight. Due on d ue Goal Hepatitis C scre ening. Due on due Goal PHQ-9. Due on du e Goal Height. Due on d ue Goal Update Social Hi story. Due on due Goal Unhealthy drug u se screening. Due on due Goal GENERAL ASSEMBLER INSTALLER Scanned. Due on due Goal UDT. Due on due Goal AST (SGOT). Due on due Goal Creatinine. Due on due Goal Height. Due on d ue Goal Medication Recon ciliation. Due on due Goal Tobacco Use. Due on due Goal ALT (SGPT). Due on due Goal PHQ-9. Due on du e Goal Update Social Hi story. Due on due Goal STEAM HEATING INSTALLER Paperwork. Due on due Goal Hepatitis C scre ening. Due on due Goal Order Annual PT. Due on due Goal OARS. Due on due Goal Weight. Due on d ue Goal Review Allergy List. Due on due Goal Lipid panel. Due on due Goal UDT. Due on due Goal ALT (SGPT). Due on due Goal Creatinine. Due on due Goal AST (SGOT). Due on due Goal Medication Recon ciliation. Due on due Goal Update Social Hi story. Due on due Goal Weight. Due on d ue Goal Tobacco Use. Due on due Goal Unhealthy drug u se screening. Due on due Goal GENERAL ASSEMBLER INSTALLER Scanned. Due on due Goal STEAM HEATING INSTALLER Paperwork. Due on due Goal Order Annual PT. Due on due Goal Lipid panel. Due on due Goal Review Allergy List. Due on due Goal OARS. Due on due Goal PHQ-9. Due on du e Goal Hepatitis C scre ening. Due on due Goal Height. Due on d ue Goal UDT. Due on due Goal ALT (SGPT). Due on due Goal Review Allergy List. Due on due Goal PHQ-9. Due on du e Goal Unhealthy drug u se screening. Due on due Goal Medication Recon ciliation. Due on due Goal Hepatitis C scre ening. Due on due Goal AST (SGOT). Due on due Goal OARS. Due on due Goal Tobacco Use. Due on due Goal Height. Due on d ue Goal Weight. Due on d ue Goal Lipid panel. Due on due Goal Order Annual PT. Due on due Goal STEAM HEATING INSTALLER Paperwork. Due on due Goal GENERAL ASSEMBLER INSTALLER Scanned. Due on due Goal Update Social Hi story. Due on due Goal Creatinine. Due on due Goal PHQ-9. Due on du e Goal Update Social Hi story. Due on due Goal OARS. Due on due Goal AST (SGOT). Due on due Goal Weight. Due on d ue Goal Unhealthy drug u se screening. Due on due Goal Order Annual PT. Due on due Goal UDT. Due on due Goal ALT (SGPT). Due on due Goal Medication Recon ciliation. Due on due Goal Lipid panel. Due on due Goal Tobacco Use. Due on due Goal Creatinine. Due on due Goal GENERAL ASSEMBLER INSTALLER Scanned. Due on due Goal Height. Due on d ue Goal Review Allergy List. Due on due Goal Hepatitis C scre ening. Due on due Goal STEAM HEATING INSTALLER Paperwork. Due on due Goal GENERAL ASSEMBLER INSTALLER Scanned. Due on due Goal Tobacco Use. Due on due Goal ALT (SGPT). Due on due Goal STEAM HEATING INSTALLER Paperwork. Due on due Goal Review Allergy List. Due on due Goal AST (SGOT). Due on due Goal UDT. Due on due Goal Order Annual PT. Due on due Goal OARS. Due on due Goal Creatinine. Due on due Goal Lipid panel. Due on due Goal Weight. Due on d ue Goal Medication Recon ciliation. Due on due Goal Update Social Hi story. Due on due Goal Hepatitis C scre ening. Due on due Goal Height. Due on d ue Goal Unhealthy drug u se screening. Due on due Goal PHQ-9. Due on du e Goal AST (SGOT). Due on due Goal OARS. Due on due Goal Order Annual PT. Due on due Goal UDT. Due on due Goal Creatinine. Due on due Goal GENERAL ASSEMBLER INSTALLER Scanned. Due on due Goal STEAM HEATING INSTALLER Paperwork. Due on due Goal ALT (SGPT). Due on due Goal Medication Recon ciliation. Due on due Goal Update Social Hi story. Due on due Goal PHQ-9. Due on du e Goal Review Allergy List. Due on due Goal Unhealthy drug u se screening. Due on due Goal Lipid panel. Due on due Goal Height. Due on d ue Goal Tobacco Use. Due on due Goal Hepatitis C scre ening. Due on due Goal Weight. Due on d ue Goal ALT (SGPT). Due on due Goal PHQ-9. Due on du e Goal OARS. Due on due Goal UDT. Due on due Goal Lipid panel. Due on due Goal Height. Due on d ue Goal Medication Recon ciliation. Due on due Goal STEAM HEATING INSTALLER Paperwork. Due on due Goal Weight. Due on d ue Goal Order Annual PT. Due on due Goal AST (SGOT). Due on due Goal GENERAL ASSEMBLER INSTALLER Scanned. Due on due Goal Unhealthy drug u se screening. Due on due Goal Hepatitis C scre ening. Due on due Goal Creatinine. Due on due Goal Update Social Hi story. Due on due Goal Review Allergy List. Due on due Goal Tobacco Use. Due on due Goal Creatinine. Due on due Goal STEAM HEATING INSTALLER Paperwork. Due on due Goal AST (SGOT). Due on due Goal OARS. Due on due Goal Unhealthy drug u se screening. Due on due Goal UDT. Due on due Goal GENERAL ASSEMBLER INSTALLER Scanned. Due on due Goal Hepatitis C scre ening. Due on due Goal Lipid panel. Due on due Goal PHQ-9. Due on du e Goal Order Annual PT. Due on due Goal Medication Recon ciliation. Due on due Goal Tobacco Use. Due on due Goal Height. Due on d ue Goal ALT (SGPT). Due on due Goal Review Allergy List. Due on due Goal Update Social Hi story. Due on due Goal Weight. Due on d ue Goal OARS. Due on due Goal PHQ-9. Due on du e Goal Lipid panel. Due on due Goal Review Allergy List. Due on due Goal Weight. Due on d ue Goal Order Annual PT. Due on due Goal Medication Recon ciliation. Due on due Goal AST (SGOT). Due on due Goal STEAM HEATING INSTALLER Paperwork. Due on due Goal Unhealthy drug u se screening. Due on due Goal GENERAL ASSEMBLER INSTALLER Scanned. Due on due Goal UDT. Due on due Goal Creatinine. Due on due Goal Hepatitis C scre ening. Due on due Goal Height. Due on d ue Goal ALT (SGPT). Due on due Goal Update Social Hi story. Due on due Goal Tobacco Use. Due on due Goal AST (SGOT). Due on due Goal UDT. Due on due Goal Creatinine. Due on due Goal ALT (SGPT). Due on due Goal Order Annual PT. Due on due Goal Weight. Due on d ue Goal Review Allergy List. Due on due Goal Unhealthy drug u se screening. Due on due Goal STEAM HEATING INSTALLER Paperwork. Due on due Goal Lipid panel. Due on due Goal Hepatitis C scre ening. Due on due Goal PHQ-9. Due on du e Goal Height. Due on d ue Goal Medication Recon ciliation. Due on due Goal Update Social Hi story. Due on due Goal Tobacco Use. Due on due Goal OARS. Due on due Goal GENERAL ASSEMBLER INSTALLER Scanned. Due on due Goal AST (SGOT). Due on due Goal PHQ-9. Due on du e Goal Weight. Due on d ue Goal UDT. Due on due Goal ALT (SGPT). Due on due Goal Creatinine. Due on due Goal GENERAL ASSEMBLER INSTALLER Scanned. Due on due Goal Order Annual PT. Due on due Goal OARS. Due on due Goal Update Social Hi story. Due on due Goal Medication Recon ciliation. Due on due Goal STEAM HEATING INSTALLER Paperwork. Due on due Goal Height. Due on d ue Goal Tobacco Use. Due on due Goal Review Allergy List. Due on due Goal Medication Recon ciliation. Due on due Goal PHQ-9. Due on du e Goal Weight. Due on d ue Goal AST (SGOT). Due on due Goal Order Annual PT. Due on due Goal Height. Due on d ue Goal OARS. Due on due Goal GENERAL ASSEMBLER INSTALLER Scanned. Due on due Goal ALT (SGPT). Due on due Goal UDT. Due on due Goal Review Allergy List. Due on due Goal STEAM HEATING INSTALLER Paperwork. Due on due Goal Update Social Hi story. Due on due Goal Creatinine. Due on due Goal Tobacco Use. Due on due Goal OARS. Due on due Goal Creatinine. Due on due Goal ALT (SGPT). Due on due Goal AST (SGOT). Due on due Goal GENERAL ASSEMBLER INSTALLER Scanned. Due on due Goal UDT. Due on due Goal Update Social Hi story. Due on due Goal Height. Due on d ue Goal Order Annual PT. Due on due Goal Medication Recon ciliation. Due on due Goal Weight. Due on d ue Goal Tobacco Use. Due on due Goal STEAM HEATING INSTALLER Paperwork. Due on due Goal Review Allergy List. Due on due Goal PHQ-9. Due on du e Goal Medication Recon ciliation. Due on due Goal Review Allergy List. Due on due Goal Update Social Hi story. Due on due Goal Height. Due on d ue Goal Creatinine. Due on due Goal UDT. Due on due Goal Tobacco Use. Due on due Goal STEAM HEATING INSTALLER Paperwork. Due on due Goal Order Annual PT. Due on due Goal ALT (SGPT). Due on due Goal AST (SGOT). Due on due Goal GENERAL ASSEMBLER INSTALLER Scanned. Due on due Goal Weight. Due on d ue Goal OARS. Due on due Goal PHQ-9. Due on du e Goal STEAM HEATING INSTALLER Paperwork. Due on due Goal PHQ-9. Due on du e Goal Creatinine. Due on due Goal Update Social Hi story. Due on due Goal Review Allergy List. Due on due Goal Order Annual PT. Due on due Goal Weight. Due on d ue Goal Height. Due on d ue Goal OARS. Due on due Goal GENERAL ASSEMBLER INSTALLER Scanned. Due on due Goal AST (SGOT). Due on due Goal ALT (SGPT). Due on due Goal Medication Recon ciliation. Due on due Goal UDT. Due on due Goal Tobacco Use. Due on due Goal Creatinine. Due on due Goal Weight. Due on d ue Goal Height. Due on d ue Goal Update Social Hi story. Due on due Goal OARS. Due on due Goal AST (SGOT). Due on due Goal STEAM HEATING INSTALLER Paperwork. Due on due Goal GENERAL ASSEMBLER INSTALLER Scanned. Due on due Goal ALT (SGPT). Due on due Goal Tobacco Use. Due on due Goal Review Allergy List. Due on due Goal Medication Recon ciliation. Due on due Goal Order Annual PT. Due on due Goal UDT. Due on due Goal PHQ-9. Due on du e Goal Review Allergy List. Due on due Goal Tobacco Use. Due on due Goal Update Social Hi story. Due on due Goal GENERAL ASSEMBLER INSTALLER Scanned. Due on due Goal STEAM HEATING INSTALLER Paperwork. Due on due Goal Height. Due on d ue Goal ALT (SGPT). Due on due Goal AST (SGOT). Due on due Goal OARS. Due on due Goal Creatinine. Due on due Goal Order Annual PT. Due on due Goal PHQ-9. Due on du e Goal Weight. Due on d ue Goal Medication Recon ciliation. Due on due Goal UDT. Due on due Goal AST (SGOT). Due on due Goal Tobacco Use. Due on due Goal Height. Due on d ue Goal PHQ-9. Due on du e Goal Review Allergy List. Due on due Goal Creatinine. Due on due Goal GENERAL ASSEMBLER INSTALLER Scanned. Due on due Goal STEAM HEATING INSTALLER Paperwork. Due on due Goal Medication Recon ciliation. Due on due Goal Weight. Due on d ue Goal OARS. Due on due Goal ALT (SGPT). Due on due Goal UDT. Due on due Goal Update Social Hi story. Due on due Goal Order Annual PT. Due on due Goal Creatinine. Due on due Goal Order Annual PT. Due on due Goal STEAM HEATING INSTALLER Paperwork. Due on due Goal Height. Due on d ue Goal OARS. Due on due Goal GENERAL ASSEMBLER INSTALLER Scanned. Due on due Goal Weight. Due on d ue Goal PHQ-9. Due on du e Goal UDT. Due on due Goal Update Social Hi story. Due on due Goal Review Allergy List. Due on due Goal ALT (SGPT). Due on due Goal Tobacco Use. Due on due Goal AST (SGOT). Due on due Goal Medication Recon ciliation. Due on due Goal Weight. Due on d ue Goal UDT. Due on due Goal ALT (SGPT). Due on due Goal STEAM HEATING INSTALLER Paperwork. Due on due Goal Order Annual PT. Due on due Goal Creatinine. Due on due Goal Review Allergy List. Due on due Goal OARS. Due on due Goal AST (SGOT). Due on due Goal Update Social Hi story. Due on due Goal GENERAL ASSEMBLER INSTALLER Scanned. Due on due Goal Tobacco Use. Due on due Goal Medication Recon ciliation. Due on due Goal PHQ-9. Due on du e Goal Height. Due on d ue Goal GENERAL ASSEMBLER INSTALLER Scanned. Due on due Goal Weight. Due on d ue Goal Tobacco Use. Due on due Goal Update Social Hi story. Due on due Goal STEAM HEATING INSTALLER Paperwork. Due on due Goal Order Annual PT. Due on due Goal Creatinine. Due on due Goal ALT (SGPT). Due on due Goal Review Allergy List. Due on due Goal OARS. Due on due Goal Height. Due on d ue Goal AST (SGOT). Due on due Goal UDT. Due on due Goal PHQ-9. Due on du e Goal Medication Recon ciliation. Due on due Goal Height. Due on d ue Goal UDT. Due on due Goal AST (SGOT). Due on due Goal Weight. Due on d ue Goal Update Social Hi story. Due on due Goal OARS. Due on due Goal Review Allergy List. Due on due Goal Medication Recon ciliation. Due on due Goal Tobacco Use. Due on due Goal PHQ-9. Due on du e Goal Order Annual PT. Due on due Goal Creatinine. Due on due Goal GENERAL ASSEMBLER INSTALLER Scanned. Due on due Goal ALT (SGPT). Due on due Goal STEAM HEATING INSTALLER Paperwork. Due on due Goal Update Social Hi story. Due on due Goal Weight. Due on d ue Goal GENERAL ASSEMBLER INSTALLER Scanned. Due on due Goal Review Allergy List. Due on due Goal Creatinine. Due on due Goal UDT. Due on due Goal Tobacco Use. Due on due Goal OARS. Due on due Goal AST (SGOT). Due on due Goal ALT (SGPT). Due on due Goal Height. Due on d ue Goal STEAM HEATING INSTALLER Paperwork. Due on due Goal Order Annual PT. Due on due Goal Medication Recon ciliation. Due on due Goal PHQ-9. Due on du e Goal Tobacco cessation counseling completed Appointment Lior [facility]in BOOKED Future Order: Lab Order Drug Pat t Def 22+ Classes (G0483), Ordered on: Ordered Future Order: Lab Order COMPLIAN CE DRUG ANALYSIS, URINE, WITH MED REPORT ([id number]), Ordered on: Ordered Future Order: Lab Order Drug Pat t Def 22+ Classes ([id number]), Ordered on: Ordered History Of Present Illness Encounter Date Complaint History Of Prese nt Illness right knee pain Duration: chroni c. Severity level is 7. It occurs constantly and is worsening. Location: right knee. Comments: Chun is a 47 y/o male who presents for virtual follow up and medications refill in the setting of chronic BL knee pain (R>L). Pain has been worse this month. Notes the cold weather aggravates his pain. Plans to pursue knee injections through orthopedist. Plans to have arthroscopic surgery for L knee in the future through [facility].Of note, he has been dealing with some stress regarding his daughter being bullied at school.Reports current medication regimen provides 70% pain relief and allows for increased functionality. Presents with surplus of prescribed medication. Continues to utilize [place] 5-325mg with moderate benefit. Denies OIC or other side effects from current medication regimen. No other concerns today. right knee pain Duration: chroni c. Severity level is 2. It occurs constantly and is fluctuating. Location: right knee. The pain is aching. The pain is aggravated by bending, climbing (and descending) stairs, sitting, walking and standing. The pain is relieved by pain/RX meds, changing positions and lying down. Comments: Chun is a 47 y/o male who presents for follow up and medications refill in the setting of chronic BL knee pain (R>L). Pain has been fluctuating this month. Notes the cold weather aggravates his pain. Notes he has to spend a lot of time sitting and driving as his daughter has been traveling for volleyball. States ORDOÑEZ injection for R knee was unable to be completed at [facility], d/t not having correct equipment. Still expresses interest, but would like to complete at [facility] and not [facility]. Hopes to schedule with next in-clinic OV. Plans to have arthroscopic surgery for L knee in the future through [facility].Continues to have issues with WC.Reports current medication regimen provides 75% pain relief and allows for increased functionality. Presents with surplus of prescribed medication. Continues to utilize [place] 5-325mg with moderate benefit. Denies OIC or other side effects from current medication regimen. No other concerns today. Comments: Chun is a 47 y/o male who presents for virtual follow up and medications refill in the setting of chronic BL knee pain (R>L). Pain has been worse this month and he notes some increased knee stiffness d/t the cold weather. Requests ORDOÑEZ injection for R knee.Of note, his WC payment has gone through for L knee. Plans to have arthroscopic surgery in the future through [facility].Reports current medication regimen provides 80% pain relief and allows for increased functionality. Presents on track with prescribed medication. Continues to utilize [place] 5-325mg with moderate benefit. Denies OIC or other side effects from current medication regimen. No other concerns today. right knee pain Duration: chroni c. Severity level is 6. It occurs constantly and is worsening. Location: right knee. right knee pain Duration: chroni c. It occurs constantly and is stable. Location: right knee. Comments: Chun is a 47 y/o male who presents for virtual follow up and medications refill in the setting of chronic BL knee pain. Pain has been stable this month and he notes some increased knee stiffness d/t the cold weather.Reports current medication regimen provides 85% pain relief and allows for increased functionality. Continues to utilize [place] 5-325mg with moderate benefit. Denies OIC or other side effects from current medication regimen. No other concerns today. Comments: Chun is a 46 y/o male who presents for follow up and medications refill in the setting of chronic BL knee pain. Pain has been stable this month and he has been seeing a chiropractor w/ benefit. Continues to deal with insurance issues regarding seeing an orthopedist.Of note, he has been experiencing some stress d/t family issues.Reports current medication regimen provides 85% pain relief and allows for increased functionality. Presents with surplus of prescribed medication. Continues to utilize [place] 5-325mg with moderate benefit. Denies OIC or other side effects from current medication regimen. No other concerns today. right knee pain Duration: chroni c. Severity level is 3. It occurs constantly and is stable. Location: right knee. The pain is aching. The pain is aggravated by climbing (and descending) stairs, movement, walking and twisting. The pain is relieved by rest and lying down. Comments: Chun is a 46 y/o male who presents for virtual follow up and medications refill in the setting of chronic BL knee pain. Pain has been stable this month and he has been seeing a chiropractor w/ benefit. Continues to deal with insurance issues regarding seeing an orthopedist.Reports current medication regimen provides 75% pain relief and allows for increased functionality. Continues to utilize [place] 5-325mg with moderate benefit. Denies OIC or other side effects from current medication regimen. No other concerns today. right knee pain Duration: chroni c. It occurs constantly and is stable. Location: right knee. The pain is aching. The pain is aggravated by lifting, movement, walking and standing. The pain is relieved by heat, rest and stretching. right knee pain Duration: chroni c. Severity level is 7. It occurs constantly and is worsening. Location: right knee. Comments: Chun is a 46 y/o male who presents via [facility] for virtual follow up and medications refill in the setting of chronic BL knee pain. Pain has been worse this month. He states his L shoulder have been the most bothersome. Notes the shoulder pain is not currently on the same scale as the knee pain. Will plan to continue following up with his orthopedic doctor for further care regarding both ongoing issues.Reports current medication regimen provides 75% pain relief and allows for increased functionality. Continues to utilize [place] 5-325mg with moderate benefit. Denies OIC or other side effects from current medication regimen. No other concerns today. Comments: Chun is here for a follow up and medications refill. He is followed for bilateral knee pain. States pain has persisted and has been fluctuating over the last month. Notes recent flare while playing edge bags. Utilizing L knee brace currently.Of note, experiencing issues with surgeon he has been working with.Reports current medication regimen provides 80% pain relief and allows for increased functionality. Denies side effects from current medication regimen. Presents with surplus of prescribed medication. No other concerns today. right knee pain Duration: chroni c. Severity level is 3. It occurs intermittently and is fluctuating. Location: right knee. The pain is aching. The pain is aggravated by climbing (and descending) stairs and walking. The pain is relieved by rest and lying down. right knee pain Duration: chroni c. Severity level is 4. It occurs intermittently and is stable. Location: right knee. The pain is aching. The pain is aggravated by bending, climbing (and descending) stairs and walking. The pain is relieved by pain/RX meds and lying down. Comments: Chun is here for a virtual follow up and medications refill. He is followed for bilateral knee pain. States pain has persisted over the last month, but remains stable. Denies recent flares or any new concerns, regarding his pain. Of note, has been experiencing ups and downs with his family.Reports current medication regimen provides 80% pain relief and allows for increased functionality. Denies side effects from current medication regimen. Presents surplus of prescribed medication. No other concerns today. Comments: Chun is here for a virtual follow up and medications refill. He is followed for bilateral knee pain. States pain has persisted over the last month, but remains stable. He continues to await insurance appeal. Denies new concerns since last OV and requests a refill of current medication regimen.Reports current medication regimen provides 80% pain relief and allows for increased functionality. Denies side effects from current medication regimen. Presents on track with prescribed medication. No other concerns today. right knee pain Duration: chroni c. Severity level is 7. It occurs intermittently and is stable. Location: bilateral knee. The pain is aching. The pain is aggravated by bending, climbing (and descending) stairs, movement and walking. The pain is relieved by lying down. Knee Pain Duration: chroni c. Severity level is 7. It occurs intermittently and is stable. Location: knee. The pain is aching and sharp. The pain is aggravated by bending, climbing (and descending) stairs, movement, walking and twisting. The pain is relieved by lying down. Comments: Chun is here for a virtual follow up and medications refill. He is followed for bilateral knee pain. States pain has persisted over the last month, but remains stable. He continues to await insurance appeal. Denies new concerns since last OV and requests a refill of current medication regimen.States pain was worse during bad weather. Inquires about cortisone injections.Reports current medication regimen provides 80% pain relief and allows for increased functionality. Denies side effects from current medication regimen. Presents with a surplus of prescribed medication. No other concerns today. bilateral knee pain Duration: ch ronic. Severity level is 6. It occurs intermittently and is stable. Location: bilateral knee. The pain is aching and sharp. The pain is aggravated by bending, climbing (and descending) stairs and walking. The pain is relieved by pain/RX meds and lying down. Comments: Chun is here for a virtual follow up and medications refill. He is followed for bilateral knee pain. States pain has persisted over the last month. He feels the tear in his R knee is worsening. He continues to await insurance appeal. Denies new concerns since last OV and requests a refill of current medication regimen.Reports current medication regimen provides 80+% pain relief and allows for increased functionality. Denies side effects from current medication regimen.No other concerns today. bilateral knee pain Duration: ch ronic. Severity level is 7. It occurs intermittently and is stable. Location: bilateral knee. The pain is aggravated by climbing (and descending) stairs, movement and walking. The pain is relieved by rest. Comments: Chun is here for a virtual follow up and medications refill. He is followed for bilateral knee pain. States pain has persisted over the last month. He feels the tear in his R knee is worsening. He continues to await insurance appeal. Denies new concerns since last OV and requests a refill of current medication regimen.Reports current medication regimen provides 80+% pain relief and allows for increased functionality. Denies side effects from current medication regimen.No other concerns today. bilateral knee pain (comments) Raina churchill presents for a follow up and medication refill. He is followed for bilateral knee pain. Reports pain has been fluctuating. Left knee pain has been more bothersome than his R knee r/t torn meniscus. He continues to have issues with covering his knee surgery. Will continue to appeal. Of note, he recently got to his significant other who he's been with for 12 years.Reports current medication regimen provides 80% pain relief and allows for increased functionality. Denies side effects from current medication regimen. bilateral knee pain Duration: ch ronic. Severity level is 3. It occurs intermittently and is fluctuating. Location: bilateral knee. There is no radiation. The pain is sharp. The pain is aggravated by climbing (and descending) stairs, walking and standing. The pain is relieved by pain/RX meds and rest. bilateral knee pain (comments) Raina churchill is meeting with us today via [facility] Virtual Visit for follow up and medication refill. He is followed for bilateral knee pain. Left knee pain has been more bothersome than his R knee. However details both knees have been more painful which he attributes to ongoing stress. Of note, details ongoing emotional distress r/t his [id number]'s recent stage 4 cancer diagnosis. Reports current medication regimen provides 75% pain relief and allows for increased functionality. Denies side effects from current medication regimen. bilateral knee pain Duration: ch ronic. Severity level is 8. It occurs intermittently and is worsening. Location: bilateral knee and L knee. The pain is aching. The pain is aggravated by climbing (and descending) stairs and walking. The pain is relieved by pain/RX meds and rest. Knee Pain Duration: chroni c. Severity level is 8. It occurs constantly and is worsening. Location: bilateral knee. The pain is aching and sharp. The pain is aggravated by climbing (and descending) stairs and walking. The pain is relieved by pain/RX meds, rest and supine. Knee Pain (comments) Chun is me eting with us today via [facility] Virtual Visit for follow up and medication refill. Reports bilateral knee pain has persisted. He details frustration about having two painful knees. Since last OV, he has been sent to another provider for evaluation of L knee torn meniscus. He is frustrated as surgery with Dr. Morales must now be pushed out. Reports current medication regimen provides 80% pain relief and allows for increased functionality. Denies side effects from current medication regimen. bilateral knee pain Duration: ch ronic. Severity level is 7. It occurs intermittently and is stable. Location: bilateral knee. The pain is sharp. The pain is aggravated by climbing (and descending) stairs, walking and running. The pain is relieved by supine. bilateral knee pain (comments) Raina churchill is meeting with us today via [facility] Virtual Visit for follow up and medication refill. Reports bilateral knee pain has persisted.Since last OV, he had his L knee worked up through ortho. Per patient report he has a torn meniscus. He is currently awaiting insurance approval of surgery with Dr. Morales. He details frustration with being out of work for so long. Reports current medication regimen provides 80% pain relief and allows for increased functionality. Denies side effects from current medication regimen. bilateral knee pain Duration: ch ronic. Severity level is 7. It occurs constantly and is worsening. Location: bilateral knee. The pain is aching, burning and sharp. The pain is aggravated by climbing (and descending) stairs and walking. The pain is relieved by rest and supine. bilateral knee pain (comments) Raina churchill is meeting with us today via [facility] Virtual Visit for follow up and medication refill. Reports bilateral knee pain has persisted. States that he is planning to have a work-up of his L knee through ortho. Denies new chronic pain concerns. Remain uninterested in injections at this time. Reports current medication regimen provides 80% pain relief and allows for increased functionality. Denies side effects from current medication regimen.No other concerns today. right knee pain (comments) Chun is meeting with us today via [facility] Virtual Visit for follow up and medication refill. Right knee pain persists this month, but medication does help to some extent. Reports an onset of L knee pain. States the injury occurred at work. He has been trying to rest it, but pain has persisted. Plans to proceed with work-up through . Of note, he has lost all the weight he gained from being off his water pill. Reports current medication regimen provides 80% pain relief and allows for increased functionality. Denies side effects from current medication regimen.No other concerns today. right knee pain Duration: chroni c. It occurs constantly and is stable. Location: bilateral knees. The pain is aching, burning and sharp. The pain is aggravated by bending, climbing (and descending) stairs, lifting and movement. The pain is relieved by rest and meds. right knee pain (comments) Chun is meeting with us today via [facility] Virtual Visit for follow up and medication refill. Right knee pain persists this month, but medication does help to some extent. Of note, he states that his PCP took him off his water pill and he gained 23 pounds in two weeks. States he has not been feeling well. Called his PCP and restarted water pill yesterday. Reports current medication regimen provides 80% pain relief and allows for increased functionality. Denies side effects from current medication regimen.No other concerns today. right knee pain Duration: chroni c. It occurs constantly and is stable. Location: right knee. The pain is aching, burning and sharp. The pain is aggravated by bending, climbing (and descending) stairs, lifting and movement. The pain is relieved by pain/RX meds and rest. right knee pain Duration: chroni c. Severity level is 6. It occurs intermittently. Location: right knee. The pain is aching, burning and sharp. The pain is aggravated by climbing (and descending) stairs, movement, walking, running and stairs. The pain is relieved by supine. right knee pain (comments) hCun is meeting with us today via [facility] Virtual Visit for follow up and medication refill. Right knee pain persists this month, but medication does help to some extent. He is happy to declare that he has a grandson. Reports current medication regimen provides 80% pain relief and allows for increased functionality. Denies side effects from current medication regimen.No other concerns today. right knee pain (comments) Chun is here for follow-up and medication refills. Ongoing knee pain persists, tolerable with medication. Pain has been relatively stable with occasional flares. He is requests a refill of his current medication regimen as it allows him to complete his ADLs. Of note, states he has gained some weight since last OV. Reports current medication regimen provides at least 50% pain relief. Denies side effects from current medication regimen. No other concerns today. right knee pain Duration: chroni c. Severity level is 2. It occurs intermittently and is fluctuating. Location: right knee. The pain is sharp. The pain is aggravated by climbing (and descending) stairs and walking. The pain is relieved by lying down. Knee Pain Duration: chroni c. Severity level is 8. It occurs constantly and is stable. Location: bilateral knee. The pain is aggravated by bending, climbing (and descending) stairs, lifting, movement, walking and standing. The pain is relieved by heat, ice, pain/RX meds and rest. Knee Pain (comments) Chun is he re for follow-up and medication refills. Ongoing knee pain persists, tolerable with medication. Pain has been relatively stable with occasional flares. He recently received his COVID-19 vaccine which has resulted in some side effects. He is requests a refill of his current medication regimen as it allows him to complete his ADLs. Reports current medication regimen provides at least 50% pain relief. Denies side effects from current medication regimen. No other concerns today. Knee Pain (comments) Patient is here for follow-up and medication refills. Ongoing widespread pain persists, tolerable with medication. Pain has been worse this month d/t stressors. He had to quarantine last month d/t multiple COVID-19 exposures. He also had a close family member past away. He continues to lose weight and has lost a total of 25 pounds. His goal is to continue to lose weight so he is able to have surgery. He requests a medrol dose milla as he tweaked his back a couple days ago. He also would like to continue with the current medication regimen.Reports current medication regimen provides at least 50% pain relief. Denies side effects from current medication regimen. No other concerns today. Knee Pain Duration: chroni c. Severity level is 5. It occurs constantly and is stable. Location: bilateral knee. The pain is aching, dull and sharp. The pain is aggravated by bending, climbing stairs, lifting, movement and walking. The pain is relieved by heat, ice, pain/RX meds and rest. Knee Pain It occurs consta ntly. Location: bilateral knee. The pain is sharp. The pain is aggravated by bending, climbing (and descending) stairs, lifting and movement. Knee Pain (comments) Chun is he re today for follow up and medication management. Reports >50% relief with their current regimen and denies any side effects.States that his knee pain has been relatively stable over the past month. However, notes that he has had several abdominal flares. This is related to multiple hiatal hernias. Notes that he saw a surgeon who stated he would not perform surgery unless he lost weight and stopped smoking. In 3 weeks he has lost an intentional 20lbs. Continues to use his medications sparingly to maintain his lowest effective dose which explains his surplus today.Patient is not accompanied today and has no other questions or concerns. Knee Pain (comments) Chun is he re for virtual follow-up and medication refills. Ongoing knee pain persists, tolerable with medication. Pain has been worse. He has been experiencing severe abdominal pain for the last couple weeks and will be having a repeat hernia surgery within the next month. Requests a refill of his current medication regimen as it allows him to complete his ADLS.Reports current medication regimen provides at least 50% pain relief. Denies side effects from current medication regimen. No other concerns today. Knee Pain Duration: chroni c. Severity level is 4. It occurs constantly and is stable. Location: bilateral knee. The pain is aching, burning and sharp. The pain is aggravated by bending, climbing (and descending) stairs, lifting and movement. The pain is relieved by heat, ice, pain/RX meds and rest. Knee Pain (comments) Chun is he re for virtual follow-up and medication refills. Ongoing BL knee pain persists, tolerable with medication. Pain has been relatively stable with occasional flares related to the cold weather. He had to quarantine for two weeks since his daughter tested positive for COVID-19. Requests a refill of the current medication regimen as it allows him to work and complete his ADLs.Reports current medication regimen provides at least 50% pain relief. Denies side effects from current medication regimen. No other concerns today. Knee Pain Duration: chroni c. Severity level is 6. It occurs constantly and is stable. Location: knee. The pain is aggravated by bending, climbing (and descending) stairs, lifting and movement. Knee Pain Duration: chroni c. It occurs constantly and is stable. Location: knee. The pain is aching, burning and sharp. The pain is aggravated by bending, climbing (and descending) stairs, lifting, movement, pushing, walking and standing. The pain is relieved by heat, ice and pain/RX meds. Knee Pain (comments) Chun is he re for virtual follow-up and medication refills. Ongoing BL knee pain persists, tolerable with medication. Pain has remained stable with no changes this month. He would like to continue with the current medication regimen as it allows him to complete his ADLs and work without limitations. Reports current medication regimen provides at least 50% pain relief. Denies side effects from current medication regimen. No other concerns today. Knee Pain Duration: chroni c. Severity level is 7. It occurs constantly and is stable. Location: bilateral knee. The pain is aching, burning and sharp. The pain is aggravated by bending, climbing (and descending) stairs, lifting and movement. The pain is relieved by heat, ice, pain/RX meds and rest. Knee Pain (comments) Chun is he re for virtual follow-up and medication refills. Ongoing knee pain persist, tolerable with medication. Pain has been stable this month with no new changes. He would like to continue with the current medication regimen as it allows him to complete his ADLs and work without limitations.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
[2023-01-24 21:48] LABS: Basophils Absolute Auto 0.04 K/uL (0.00-0.30); Basophils Percent Auto 0.5 % (0.0-3.0); Chloride* 103 mmol/L (96-114); Eosinophils Absolute Auto 0.11 K/uL (0.00-0.50); Eosinophils Percent Auto 1.4 % (0.0-7.0); Hemoglobin* 12.6 gm/dL (13.5-17.5); Immature Granulocytes Abs Auto 0.02 K/uL (0.00-0.30); Immature Granulocytes Pct Auto 0.3 %; Lymphocytes Absolute Auto 2.63 K/uL (0.90-2.90); Lymphocytes Percent Auto 33.1 % (20-44); Mean Corpuscular HGB Conc 35 gm/dL (32-36); Mean Corpuscular Hemoglobin 32 pg (26-34); Mean Corpuscular Volume 90 fL (80-100); Monocytes Percent Auto 6.2 % (0.0-11.0); Neutrophils Absolute Auto 4.65 K/uL (1.7-7.0); Neutrophils Percent Auto 58.5 % (42.0-72.0); Platelet Count* 211 K/uL (140-440); Potassium* 3.8 mmol/L (3.6-5.1); RDW Coefficient of Variation % 12.2 % (11.5-15.5); Sodium* 137 mmol/L (135-149); White Blood Count* 7.94 K/uL (4.50-11.00)
[2023-01-24 21:50] LABS: Estimated Glomerular Filt Rate 93 ml/min
[2023-01-24 21:51] LABS: Blood Urea Nitrogen* 21 mg/dL (5-24); Calcium* 9.6 mg/dL (8.4-10.6); Carbon Dioxide* 25 mmol/L (20-32); Glucose* 119 mg/dL (60-115)
[2023-01-24 21:57] LABS: Slide Review Reflex No
[2023-01-24 22:04] LABS: Troponin I* < 0.01 ng/mL (0.01-0.04)
== END 2023-01-24 16:01 | disposition home or self-care (01) ==
PROVIDERS: PCP Family Medicine; Visit Provider Nurse Practitioner Family
DX: M25.512 Pain in left shoulder (principal); M17.11 Unilateral primary osteoarthritis, right knee
CPT/HCPCS: 36415; 80048; 84484; 85025

== ENCOUNTER 2023-02-01 15:30 | Outpatient (CLI) | payer OTHER, SELFPAY ==
--- OUTSIDE RECORDS SUMMARY | 2023-02-01 15:36 | XMS_ITS | Continuity of Care Document ---
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 [address] [place] [address] [address], [place], [place], [id number] , [place]. tel: [phone] Referring Provider: Andrews Wright [facility] [address], [place], [address]. tel:[phone] OFFICE/OUTPAT IENT VISIT, [facility], [address], [place], [id number] , [place] tel: [phone] [facility] right knee pain (chief complaint) Other chronic painOther chondrocalcinosis , right kneeUnilateral primary osteoarthritis, right kneePain in right kneeCurrent tear of meniscus of left knee, sequelaLong term (current) use of opiate analgesic Dec-0 3 Jonelle Gao. [address] [place] [address] [address], [place], [id number] , [place]. tel: [phone] Referring Provider: Andrews Wright [facility] [address], [place], [address]. tel:[phone] [facility], [address], [place], [id number] , [place] tel: [phone] [facility] No Information 0 3 Jonelle Gao. [address] [place] [address] [address], [place], [id number] , [place]. tel: [phone] Referring Provider: Andrews Wright [facility] [address], [place], [address]. tel:[phone] OFFICE VISIT, EST TELEMEDICINE [facility], [address], [place], [id number] , [place] tel: [phone] [facility] [place] right knee pain (chief complaint) Other chronic painOther chondrocalcinosis , right kneeUnilateral primary osteoarthritis, right kneePain in right kneeCurrent tear of meniscus of left knee, sequelaLong term (current) use of opiate analgesic Nov-0 3 Jonelle Gao. [address] [place] [address] [address], [place], [place], [id number] , [place]. tel: [phone] Referring Provider: Caleb Castro, [address] [place], [address]. tel:[phone] OFFICE VISIT, [facility] TELEMEDICINE [facility], [address] [place] [address], [id number] , [place] tel: [phone] [facility] right knee pain (chief complaint) Other chronic painOther chondrocalcinosis , right kneeUnilateral primary osteoarthritis, right kneePain in right kneeCurrent tear of meniscus of left knee, sequelaLong term (current) use of opiate analgesic Oct- 3 Sal Murray. [address] [place] [address] [address], [place], [place], [id number] , [place]. tel: [phone] [facility], [address] [place] [address], [id number] , [place] tel: [phone] [facility] No Information 2 Sal Murray. [address] [place] [address] [address], [place], [place], [id number] , [place]. tel: [phone] OFFICE/OUTPAT IENT VISIT, [facility], [address] [place] [address], [id number] , [place] tel: [phone] [facility] right knee pain (chief complaint) Other chronic painOther chondrocalcinosis , right kneeUnilateral primary osteoarthritis, right kneePain in right kneeCurrent tear of meniscus of left knee, sequelaLong term (current) use of opiate analgesic 2 Sal Murray. [address] [place] [address] [address], [place], [place], [id number] , [place]. tel: [phone] Referring Provider: Andrews Wright, [facility] [address], [place], [address]. tel:[phone] OFFICE VISIT, EST TELEMEDICINE [facility], [address] [place] [address], [id number] , [place] tel: [phone] [facility] [place] right knee pain (chief complaint) Other chronic painOther chondrocalcinosis , right kneeUnilateral primary osteoarthritis, right kneePain in right kneeCurrent tear of meniscus of left knee, sequelaLong term (current) use of opiate analgesic Nov-0 2 Jonelle Gao. [address] [place] [address] [address], [place], [place], [id number] , [place]. tel: [phone] Referring Provider: Caleb Castro, [address] [place], [address]. tel:[phone] OFFICE VISIT, [facility] TELEMEDICINE [facility], [address] [place] [address], [id number] , [place] tel: [phone] [facility] right knee pain (chief complaint) Other chronic painOther chondrocalcinosis , right kneeUnilateral primary osteoarthritis, right kneePain in right kneeCurrent tear of meniscus of left knee, sequelaLong term (current) use of opiate analgesic Jul-0 2 Jonelle Gao. [address] [place] [address] [address], [place], [place], [id number] , [place]. tel: [phone] OFFICE/OUTPAT IENT VISIT, [facility], [address] [place] [address], [id number] , [place] tel: [phone] [facility] right knee pain (chief complaint) Other chronic painOther chondrocalcinosis , right kneeUnilateral primary osteoarthritis, right kneePain in right kneeCurrent tear of meniscus of left knee, sequelaLong term (current) use of opiate analgesic Sep-0 2 Jonelle Gao. [address] [place] [address] [address], [place], [place], [id number] , [place]. tel: [phone] Referring Provider: Andrews Wright, [facility] [address], [place], [address]. tel:[phone] [facility], [address], [place], [id number] , [place] tel: [phone] [facility] No Information Sep-0 2 Jonelle Gao. [address] [place] [address] [address], [place], [place], [id number] , [place]. tel: [phone] Referring Provider: Andrews Wright, [facility] [address], [place], [address]. tel:[phone] OFFICE VISIT, EST TELEMEDICINE [facility], [address] [place] [address], [id number] , [place] tel: [phone] [facility] right knee pain (chief complaint) Other chronic painOther chondrocalcinosis , right kneeUnilateral primary osteoarthritis, right kneePain in right kneeCurrent tear of meniscus of left knee, sequelaLong term (current) use of opiate analgesic May- 2 Jonelle Gao. [address] [place] [address], [place], [place], [id number] , [place]. tel: [phone] OFFICE VISIT, EST [facility], [address] [place] [address], [id number] , [place] tel: [phone] [facility] right knee pain (chief complaint) Other chronic painOther chondrocalcinosis , right kneeUnilateral primary osteoarthritis, right kneePain in right kneeCurrent tear of meniscus of left knee, sequelaLong term (current) use of opiate analgesic Apr-0 2 Sal Murray. [address] [place] [address] [address], [place], [place], [id number] , [place]. tel: [phone] OFFICE VISIT, EST [facility], [address] [place] [address], [id number] , [place] tel: [phone] [facility] Knee Pain (chief complaint) Other chronic painOther chondrocalcinosis , right kneeUnilateral primary osteoarthritis, right kneeCurrent tear of meniscus of left knee, sequelaLong term (current) use of opiate analgesicPain in right knee Jose- 2 Sal Murray. [address] [place] [address], [place], [place], [id number] , [place]. tel: [phone] Referring Provider: Caleb Castro, [address] [place], [address]. tel: [phone] OFFICE VISIT, [facility] TELEMEDICINE [facility], [address] [place] [address], [id number] , [place] tel: [phone] [facility] bilateral knee pain (chief complaint) Other chronic painOther chondrocalcinosis , right kneeUnilateral primary osteoarthritis, right kneeCurrent tear of meniscus of left knee, sequelaLong term (current) use of opiate analgesic May-0 2 Jonelle Gao. [address] [place] [address] [address], [place], [place], [id number] , [place]. tel: [phone] OFFICE VISIT, [facility], [address] [place] [address], [id number] , [place] tel: [phone] [facility] bilateral knee pain (chief complaint) Other chronic painOther chondrocalcinosis , right kneeUnilateral primary osteoarthritis, right kneeCurrent tear of meniscus of left knee, sequelaLong term (current) use of opiate analgesic Apr-0 - 2 Sal Murray. [address] [place] [address] [address], [place], [place], [id number] , [place]. tel: [phone] Referring Provider: Caleb Castro, [address] [place] [address], [address]. tel:[phone] OFFICE/OUTPAT IENT VISIT, [facility], [address] [place] [address], [id number] , [place] tel: [phone] [facility] bilateral knee pain (chief complaint) Other chronic painUnilateral primary osteoarthritis, right kneeOther chondrocalcinosis , right kneeLong term (current) use of opiate analgesicCurrent tear of meniscus of left knee, sequela Mar-0 2 Jonelle Gao. [address] [place] [address] [address], [place], [place], [id number] , [place]. tel: [phone] Referring Provider: Andrews Wright, [facility] [address], [place], [address]. tel:[phone] [facility], [address] [place] [address], [id number] , [place] tel: [phone] [facility] [place] No Information 2 Jonelle Gao. [address] [place] [address] [address], [place], [place], [id number] , [place]. tel: [phone] Referring Provider: Caleb Castro, [address] [place] [address], [address]. [phone] OFFICE VISIT, EST TELEMEDICINE [facility], [address] [place] [address], [id number] , [place] tel: [phone] [facility] bilateral knee pain (chief complaint) Other chronic painUnilateral primary osteoarthritis, right kneeOther chondrocalcinosis , right kneeLong term (current) use of opiate analgesicCurrent tear of meniscus of left knee, sequela 2 Sal Murray. [address] [place] [address] [address], [place], [place], [id number] , [place]. tel: [phone] Referring Provider: Caleb Castro, [address] [place] [address], [address]. tel:[phone] OFFICE VISIT, EST TELEMEDICINE [facility], [address] [place] [address], [id number] , [place] tel: [phone] [facility] Knee Pain (chief complaint) Other chronic painUnilateral primary osteoarthritis, right kneeOther chondrocalcinosis , right kneeLong term (current) use of opiate analgesicCurrent tear of meniscus of left knee, sequela 2 Jonelle Gao. [address] [place] [address] [address], [place], [place], [id number] , [place]. tel: [phone] OFFICE VISIT, EST TELEMEDICINE [facility], [address] [place] [address], [id number] , [place] tel: [phone] [facility] bilateral knee pain (chief complaint) Other chronic painUnilateral primary osteoarthritis, right kneeOther chondrocalcinosis , right kneeLong term (current) use of opiate analgesicCurrent tear of meniscus of left knee, sequela 1 Jonelle Gao. [address] [place] [address] [address], [place], [id number] , [place]. tel: [phone] OFFICE VISIT, EST TELEMEDICINE [facility], [address] [place] [address], [id number] , [place] tel: [phone] [facility] bilateral knee pain (chief complaint) Other chronic painUnilateral primary osteoarthritis, right kneeOther chondrocalcinosis , right kneeLong term (current) use of opiate analgesic 1 Salkushal Gao. [address] [place] [address] [address], [place], [id number] , [place]. tel: [phone] Referring Provider: Caleb Castro, [address] [place] [address], [address]. tel:[phone] OFFICE VISIT, EST TELEMEDICINE [facility], [address] [place] [address], [id number] , [place] tel: [phone] [facility] [place] right knee pain (chief complaint) Other chronic painUnilateral primary osteoarthritis, right kneeOther chondrocalcinosis , right kneeLong term (current) use of opiate analgesic Oct-0 - 1 Saljorge Gao. [address] [place] [address] [address], [place], [id number] , [place]. tel: [phone] OFFICE VISIT, EST TELEMEDICINE [facility], [address] [place] [address], [id number] , [place] tel: [phone] [facility] right knee pain (chief complaint) Other chronic painUnilateral primary osteoarthritis, right kneeOther chondrocalcinosis , right kneeLong term (current) use of opiate analgesic Sep- 0- 1 Salkushal Gao. [address] [place] [address] [address], [place], [id number] , [place]. tel: [phone] Referring Provider: Caleb Castro, [address] [place] [address], [address]. tel:[phone] OFFICE VISIT, EST TELEMEDICINE [facility], [address] [place] [address], [id number] , [place] tel: [phone] [facility] right knee pain (chief complaint) Other chondrocalcinosis , right kneeUnilateral primary osteoarthritis, right kneeOther chronic painLong term (current) use of opiate analgesic 1 Sal Murray. [address] [place] [address] [address], [place], [place], [id number] , [place]. tel: [phone] Referring Provider: Caleb Castro, [address] [place] [address], [address]. tel:[phone] [facility], [address] [place] [address], [id number] , [place] tel: [phone] [facility] No Information 1 Nicolas Ellis. [address] [place] [address], [id number] , [place]. tel: [phone] [facility], [address] [place] [address], [id number] , [place] tel: [phone] [facility] No Information 1 Jonelle Gao. [address] [place] [address] [address], [place], [place], [id number] , [place]. tel: [phone] Referring Provider: Caleb Castro, [address] [place] [address], [address]. tel:[phone] OFFICE/OUTPAT IENT VISIT, [facility], [address] [place] [address], [id number] , [place] tel: [phone] [facility] right knee pain (chief complaint) Other chondrocalcinosis , right kneeUnilateral primary osteoarthritis, right kneeOther chronic painLong term (current) use of opiate analgesic 1 Jonelle Gao. [address] [place] [address] [address], [place], [place], [id number] , [place]. tel: [phone] Referring Provider: Andrews Wright [facility] [address], [place], [address]. tel:[phone] OFFICE VISIT, EST TELEMEDICINE [facility], [address] [place] [address], [id number] , [place] tel: [phone] [facility] [place] Knee Pain (chief complaint) Other chondrocalcinosis , right kneeUnilateral primary osteoarthritis, right kneeOther chronic painLong term (current) use of opiate analgesic Jose-0 1 Saljorge Gao. [facility] [address], [place], [place], [id number] , [place]. tel: [phone] Referring Provider: Caleb Castro, [address] [place] [address], [address]. tel:[phone] OFFICE VISIT, EST TELEMEDICINE [facility], [address] [place] [address], [id number] , [place] tel:[phone] [facility] Knee Pain (chief complaint) Other chondrocalcinosis , right kneeUnilateral primary osteoarthritis, right kneeOther chronic painLong term (current) use of opiate analgesic May-0 1 Sal Murray. [address] [place] [address] [address], [place], [place], [id number] , [place]. tel:[phone] Referring Provider: Caleb Castro, [address] [place] [address], [address]. [phone] OFFICE VISIT, EST TELEMEDICINE [facility], [address] [place] [address], [id number] , [place] tel: [phone] [facility] Knee Pain (chief complaint) Other chondrocalcinosis , right kneeUnilateral primary osteoarthritis, right kneeOther chronic painLong term (current) use of opiate analgesic Apr-0 1 Saljorge Gao. [address] [place] [address] [address], [place], [place], [id number] , [place]. tel:[phone] Referring Provider: Caleb Castro, [address] [place] [address], [address]. tel:[phone] OFFICE VISIT, EST TELEMEDICINE [facility], [address] [place] [address], [id number] , [place] tel:[phone] [facility] Knee Pain (chief complaint) Other chondrocalcinosis , right kneeUnilateral primary osteoarthritis, right kneeOther chronic painLong term (current) use of opiate analgesic Dec-0 1 Saljorge Gao. [address] [place] [address] [address], [place], [place], [id number] , [place]. [phone] Referring Provider: Caleb Castro, [address] [place] [address], [address]. [phone] OFFICE VISIT, EST TELEMEDICINE [facility], [address] [place] [address], [id number] , [place] tel:[phone] [facility] Knee Pain (chief complaint) Other chondrocalcinosis , right kneeUnilateral primary osteoarthritis, right kneeOther chronic painLong term (current) use of opiate analgesic Nov- 1 Saljorge Gao. [address] [place] [address] [address], [place], [place], [id number] , [place]. [phone] Referring Provider: Caleb Castro, [address] [place] [address], [address]. [phone] OFFICE VISIT, EST TELEMEDICINE [facility], [address] [place] [address], [id number] , [place] tel:[phone] [facility] Knee Pain (chief complaint) Other chondrocalcinosis , right kneeUnilateral primary osteoarthritis, right kneeOther chronic painLong term (current) use of opiate analgesic Oct-0 1 Jonelle Gao. [address] [place] [address] [address], [place], [place], [id number] , [place]. tel:[phone] Referring Provider: Caleb Castro, [address] [place] [address], [address]. [phone] OFFICE VISIT, EST TELEMEDICINE [facility], [address] [place] [address], [id number] , [place] [phone] [facility] Knee Pain (chief complaint) Other chondrocalcinosis , right kneeUnilateral primary osteoarthritis, right kneeOther chronic painLong term (current) use of opiate analgesic Sep-0 0 Sal Murray. [address] [place] [address] [address], [place], [place], [id number] , [place]. [phone] Referring Provider: Caleb Castro, [address] [place] [address], [address]. tel:[phone] OFFICE VISIT, EST TELEMEDICINE [facility], [address] [place] [address], [id number] , [place] [phone] [facility] Knee Pain (chief complaint) Other chondrocalcinosis , right kneeUnilateral primary osteoarthritis, right kneeOther chronic painLong term (current) use of opiate analgesic Nov-0 0 Sal Murray. [address] [facility] [address], [place], [place], [id number] , [place]. [phone] Referring Provider: Caleb Castro, [address] [place] [address], [address]. tel:[phone] OFFICE VISIT, EST TELEMEDICINE [facility], [address] [place] [address], [id number] , [place] [phone] [facility] Knee Pain (chief complaint) Other chondrocalcinosis , right kneeUnilateral primary osteoarthritis, right kneeOther chronic painLong term (current) use of opiate analgesic 0 Sal Murray. [address] [address] [address], [place], [place], [id number] , [place]. [phone] Referring Provider: Caleb Castro, [address] [place] [address], [address]. tel:[phone] OFFICE VISIT, EST TELEMEDICINE [facility], [address] [place] [address], [id number] , [place] [phone] [facility] Knee Pain (chief complaint) Other chondrocalcinosis , right kneeUnilateral primary osteoarthritis, right kneeOther chronic painLong term (current) use of opiate analgesic Jun- 0 Sal Murray. [address] [facility] [address], [place], [place], [id number] , [place]. [phone] Referring Provider: Caleb Castro, [address] [place] [address], [address]. [phone] OFFICE VISIT, [facility], [address] [place] [address], [id number] , [place] tel:[phone] [facility] [place] Knee Pain (chief complaint) Other chondrocalcinosis , right kneeUnilateral primary osteoarthritis, right kneeOther chronic painLong term (current) use of opiate analgesic 0 Sal Murray. [address] [place] [address] [address], [place], [place], [id number] , [place]. tel:[phone] Referring Provider: Caleb Castro, [address] [place] [address], [address]. tel:[phone] OFFICE VISIT, [facility], [address] [place] [address], [id number] , [place] tel:[phone] [facility] Knee Pain (chief complaint) Other chondrocalcinosis , right kneeUnilateral primary osteoarthritis, right kneeOther chronic painLong term (current) use of opiate analgesic 0 Sal Murray. [address] [place] [address] [address], [place], [place], [id number] , [place]. tel:[phone] Referring Provider: Caleb Castro, [address] [place] [address], [address]. [phone] OFFICE VISIT, [facility], [address] [place] [address], [id number] , [place] tel:[phone] [facility] right knee pain (chief complaint) Other chondrocalcinosis , right kneeUnilateral primary osteoarthritis, right kneeOther chronic painLong term (current) use of opiate analgesic 0 Sal Murray. [address] [place] [address] [address], [place], [place], [id number] , [place]. tel:[phone] Referring Provider: Caleb Castro, [address] [place] [address], [address]. tel:[phone] OFFICE/OUTPAT IENT VISIT, [facility], [address] [place] [address], [id number] , [place] tel:[phone] [facility] right knee pain (chief complaint) Other chondrocalcinosis , right kneeUnilateral primary osteoarthritis, right kneeOther chronic painLong term (current) use of opiate analgesic May-0 8- 0 Sal Murray. [address] [facility] [address], [place], [place], [id number] , [place]. tel:[phone] Referring Provider: Caleb Castro, [address] [place] [address], [address]. [phone] OFFICE VISIT, [facility], [address] [place] [address], [id number] , [place] tel:[phone] Telehealth right knee pain (chief complaint) Other chondrocalcinosis , right kneeUnilateral primary osteoarthritis, right kneeOther chronic painLong term (current) use of opiate analgesic Apr-1 0- 0 Sal Murray. [address] [place] [address] [address], [place], [place], [id number] , [place]. tel:[phone] Referring Provider: Caleb Castro, [address] [place] [address], [address]. [phone] OFFICE/OUTPAT IENT VISIT, [facility], [address] [place] [address], [id number] , [place] tel:[phone] [facility] right knee pain (chief complaint) jail (current) use of opiate analgesicOther chondrocalcinosis , right kneePain in right kneeUnilateral primary osteoarthritis, right kneeOther chronic pain Dec- 3- 0 Sal Murray. [facility] [address], [place], [place], [id number] , [place]. [phone] Referring Provider: Andrews Wright, [facility] [address], [place], [address]. [phone] OFFICE/OUTPAT IENT VISIT, [facility], [address] [place] [address], [id number] , [place] [phone] [facility] right knee pain (chief complaint) jail (current) use of opiate analgesicOther chondrocalcinosis , right kneePain in right kneeUnilateral primary osteoarthritis, right kneeOther chronic pain 0 Jonelle Gao. [address], [place], [place], [id number] , [place]. tel:[phone] Referring Provider: Andrews Wright [facility] [address], [place], [address]. tel:[phone] OFFICE/OUTPAT IENT VISIT, [facility], [address] [place], [place], [id number] , [place] tel: [phone] [facility] right knee pain (chief complaint) watermelon inspector (current) use of opiate analgesicUnilater al primary osteoarthritis, right kneePain in right kneeOther chondrocalcinosis , right kneeOther chronic pain 0 Jonelle Gao. [address], [place], [place], [id number] , [place]. tel:[phone] Referring Provider: Andresw Wright [facility] [address], [place], [address]. tel:[phone] OFFICE/OUTPAT IENT VISIT, [facility], [address] [place], [place], [id number] , [place] tel:[phone] [facility] right knee pain (chief complaint) watermelon inspector (current) use of opiate analgesicUnilater al primary osteoarthritis, right kneePain in right kneeOther chondrocalcinosis , right kneeOther chronic pain 201 9 Salkushal Gao. [address] [place] [address] [address], [place], [place], [id number] , [place]. tel:[phone] Referring Provider: Andrews Wright [facility] [address], [place], [address]. tel:[phone] OFFICE/OUTPAT IENT VISIT, [facility], [address] [place], [place], [id number] , [place] tel:[phone] [facility] Knee Pain (chief complaint) watermelon inspector (current) use of opiate analgesicOther chondrocalcinosis , right kneePain in right kneeUnilateral primary osteoarthritis, right knee Nov- 5-201 9 Jonelle Gao. [address], [place], [id number] , [place]. tel: [phone] Referring Provider: Andrews Wright [facility] [address], [place], [address]. tel:[phone] OFFICE/OUTPAT IENT VISIT, [facility], [address] [place], [place], [id number] , [place] tel: [phone] [facility] right knee pain (chief complaint) watermelon inspector (current) use of opiate analgesicOther chondrocalcinosis , right kneeUnilateral primary osteoarthritis, right kneePain in right kneeOther chronic pain Oct- 8-201 9 Jonelle Gao. [address], [place], [id number] , [place]. tel: [phone] Referring Provider: Andrews Wright [facility] [address], [place], [address]. tel:[phone] OFFICE/OUTPAT IENT VISIT, [facility], [address] [place] [address], [id number] , [place] tel: [phone] [facility] right knee pain (chief complaint) jail (current) use of opiate analgesicOther chondrocalcinosis , right kneePain in right kneeUnilateral primary osteoarthritis, right knee Sep-2 0-201 9 Jonelle Gao. [address], [place], [id number] , [place]. tel: [phone] Referring Provider: Andrews Wright [facility] [address], [place], [address]. tel:[phone] OFFICE/OUTPAT IENT VISIT, [facility], [address] [place], [place], [id number] , [place] tel: [phone] [facility] right knee pain (chief complaint) Other chronic painUnilateral primary osteoarthritis, right kneeOther chondrocalcinosis , right kneeLong term (current) use of opiate analgesic 9 Saljorge Gao. [address] [facility] [address], [place], [place], [id number] , [place]. tel: [phone] Referring Provider: Andrews Wright [facility] [address], [place], [address]. tel:[phone] OFFICE/OUTPAT IENT VISIT, [facility], [address] [place], [place], [id number] , [place] tel: [phone] [facility] right knee pain (chief complaint) Other chronic painUnilateral primary osteoarthritis, right kneeOther chondrocalcinosis , right kneeLong term (current) use of opiate analgesic 9 Sal Murray. [address] [facility] [address], [place], [id number] , [place]. tel: [phone] Referring Provider: Andrews Wright [facility] [address], [place], [address]. tel:[phone] [facility], [address], [place], [id number] , [place] tel: [phone] [facility] Unilateral primary osteoarthritis, right knee 9 Reynoldsprem Mackay. [facility], [address], [place], [address], [place]. tel: [phone] Referring Provider: Andrews Wright [facility] [address], [place], [address]. tel:[phone] OFFICE/OUTPAT IENT VISIT, [facility], [address] [place], [place], [id number] , [place] tel: [phone] [facility] [place] right knee pain (chief complaint) Other chronic painUnilateral primary osteoarthritis, right kneeOther chondrocalcinosis , right kneeLong term (current) use of opiate analgesic 9 Saljorge Gao. [address] [facility] [address], [place], [id number] , [place]. tel:[phone] Referring Provider: Andrews Wright [facility] [address], [place], [address]. tel:[phone] OFFICE/OUTPAT IENT VISIT, EST [facility], [address] [place], [place], [id number] , [place] [phone] [facility] right knee pain (chief complaint) Other chondrocalcinosis , right kneeOther chronic painPain in right kneeLong term (current) use of opiate analgesicUnilater al primary osteoarthritis, right knee 9 Salkushal Gao. [address] [place] [address] [address], [place], [place], [id number] , [place]. tel:[phone] Referring Provider: Andrews Wright [facility] [address], [place], [address]. tel:[phone] OFFICE CONSULTATION [facility], [address] [place], [place], [id number] , [place] [phone] [facility] right knee pain (chief complaint) Other chronic painPain in right kneeOther chondrocalcinosis , right knee 9 Reynolds Thompson. [facility], [address], [place], [address], [place]. tel:[phone] Referring Provider: [facility] [address], [place], [address]. tel:[phone] Family History Family Member Type Diagnosis Age At Onset No Information Payers Payer name Insurance type Covered constitution party ID Meng eveangel(s) [facility] [id number] Social History Type Description Quantity Date Captured [...] due Goal OARS. 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 Due on due Goal Unhealthy drug u se screening. Due on due Goal ALT (SGPT). Due on due Goal Creatinine. Due on due Goal GLASS CYLINDER FLANGER Paperwork. Due on due Goal Weight. Due [...] Goal Height. Due on d ue Goal AUTOMOBILE SALESMAN Scanned. Due on due Goal AST (SGOT). Due on due Goal Tobacco Use. Due on due Goal PHQ-9. Due on du e Goal Weight. Due on d ue Goal Medication Recon ciliation. Due on due Goal Order Annual PT. Due on due Goal GLASS CYLINDER FLANGER Paperwork. Due on due Goal OARS. Due on due Goal Lipid panel. Due on due Goal Review Allergy List. Due on due Goal Tobacco Use. Due on due Goal Review Allergy List. Due on due Goal Update Social Hi story. Due on due Goal OARS. 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 Due on due Goal Weight. Due [...] Goal ALT (SGPT). Due on due Goal GLASS CYLINDER FLANGER Paperwork. Due on due Goal Unhealthy drug [...] due Goal UDT. Due on due Goal GLASS CYLINDER FLANGER Paperwork. 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 Due on due Goal Unhealthy drug [...] e Goal UDT. 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 Due on due Goal Order Annual [...] u se screening. Due on due Goal GLASS CYLINDER FLANGER Paperwork. Due on due Goal Order Annual PT. Due on due Goal UDT. 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 Due on due Goal AST (SGOT). Due on due Goal OARS. Due on due Goal Creatinine. Due on due Goal ALT (SGPT). Due on due Goal GLASS CYLINDER FLANGER Paperwork. Due on due Goal Medication Recon [...] u se screening. 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 Due on due Goal UDT. Due on due Goal AST (SGOT). Due on due Goal Creatinine. Due on due Goal Height. Due on d ue Goal Medication Recon ciliation. Due on due Goal Tobacco Use. Due on due Goal ALT (SGPT). Due on due Goal PHQ-9. Due on du e Goal Update Social Hi story. Due on due Goal GLASS CYLINDER FLANGER Paperwork. Due on due Goal Hepatitis C [...] u se screening. 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 Due on due Goal GLASS CYLINDER FLANGER Paperwork. Due on due Goal Order Annual [...] Order Annual PT. Due on due Goal GLASS CYLINDER FLANGER Paperwork. 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 Due on due Goal Update Social [...] due Goal Creatinine. 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 Due on due Goal Height. Due on d ue Goal Review Allergy List. Due on due Goal Hepatitis C scre ening. Due on due Goal GLASS CYLINDER FLANGER Paperwork. 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 Due on due Goal Tobacco Use. Due on due Goal ALT (SGPT). Due on due Goal GLASS CYLINDER FLANGER Paperwork. Due on due Goal Review Allergy [...] due Goal Creatinine. 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 Due on due Goal GLASS CYLINDER FLANGER Paperwork. Due on due Goal ALT (SGPT). [...] Medication Recon ciliation. Due on due Goal GLASS CYLINDER FLANGER Paperwork. Due on due Goal Weight. Due on d ue Goal Order Annual PT. Due on due Goal AST (SGOT). 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 Due on due Goal Unhealthy drug u se screening. Due on due Goal Hepatitis C scre ening. Due on due Goal Creatinine. Due on due Goal Update Social Hi story. Due on due Goal Review Allergy List. Due on due Goal Tobacco Use. Due on due Goal Creatinine. Due on due Goal GLASS CYLINDER FLANGER Paperwork. Due on due Goal AST (SGOT). Due on due Goal OARS. Due on due Goal Unhealthy drug u se screening. Due on due Goal UDT. 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 Due on due Goal Hepatitis C [...] Goal AST (SGOT). Due on due Goal GLASS CYLINDER FLANGER Paperwork. Due on due Goal Unhealthy drug u se screening. 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 Due on due Goal UDT. Due [...] u se screening. Due on due Goal GLASS CYLINDER FLANGER Paperwork. Due on due Goal Lipid panel. Due on due Goal Hepatitis C scre ening. Due on due Goal PHQ-9. Due on du e Goal Height. Due on d ue Goal Medication Recon ciliation. Due on due Goal Update Social Hi story. Due on due Goal Tobacco Use. Due on due Goal OARS. 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 Due on due Goal AST (SGOT). Due on due Goal PHQ-9. Due on du e Goal Weight. Due on d ue Goal UDT. Due on due Goal ALT (SGPT). Due on due Goal Creatinine. 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 Due on due Goal Order Annual PT. Due on due Goal OARS. Due on due Goal Update Social Hi story. Due on due Goal Medication Recon ciliation. Due on due Goal GLASS CYLINDER FLANGER Paperwork. Due on due Goal Height. Due [...] ue Goal OARS. 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 Due on due Goal ALT (SGPT). Due on due Goal UDT. Due on due Goal Review Allergy List. Due on due Goal GLASS CYLINDER FLANGER Paperwork. Due on due Goal Update Social Hi story. Due on due Goal Creatinine. Due on due Goal Tobacco Use. Due on due Goal OARS. Due on due Goal Creatinine. Due on due Goal ALT (SGPT). Due on due Goal AST (SGOT). 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 Due on due Goal UDT. Due on due Goal Update Social Hi story. Due on due Goal Height. Due on d ue Goal Order Annual PT. Due on due Goal Medication Recon ciliation. Due on due Goal Weight. Due on d ue Goal Tobacco Use. Due on due Goal GLASS CYLINDER FLANGER Paperwork. Due on due Goal Review Allergy List. Due on due Goal PHQ-9. Due on du e Goal Medication Recon ciliation. Due on due Goal Review Allergy List. Due on due Goal Update Social Hi story. Due on due Goal Height. Due on d ue Goal Creatinine. Due on due Goal UDT. Due on due Goal Tobacco Use. Due on due Goal GLASS CYLINDER FLANGER Paperwork. Due on due Goal Order Annual PT. Due on due Goal ALT (SGPT). Due on due Goal AST (SGOT). 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 Due on due Goal Weight. Due on d ue Goal OARS. Due on due Goal PHQ-9. Due on du e Goal GLASS CYLINDER FLANGER Paperwork. Due on due Goal PHQ-9. Due on du e Goal Creatinine. Due on due Goal Update Social Hi story. Due on due Goal Review Allergy List. Due on due Goal Order Annual PT. Due on due Goal Weight. Due on d ue Goal Height. Due on d ue Goal OARS. 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 Due on due Goal AST (SGOT). [...] Goal AST (SGOT). Due on due Goal GLASS CYLINDER FLANGER Paperwork. 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 Due on due Goal ALT (SGPT). [...] Social Hi story. 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 Due on due Goal GLASS CYLINDER FLANGER Paperwork. Due on due Goal Height. Due [...] due Goal Creatinine. 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 Due on due Goal GLASS CYLINDER FLANGER Paperwork. Due on due Goal Medication Recon ciliation. Due on due Goal Weight. Due on d ue Goal OARS. Due on due Goal ALT (SGPT). Due on due Goal UDT. Due on due Goal Update Social Hi story. Due on due Goal Order Annual PT. Due on due Goal Creatinine. Due on due Goal Order Annual PT. Due on due Goal GLASS CYLINDER FLANGER Paperwork. Due on due Goal Height. Due on d ue Goal OARS. 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 Due on due Goal Weight. Due [...] Goal ALT (SGPT). Due on due Goal GLASS CYLINDER FLANGER Paperwork. Due on due Goal Order Annual PT. Due on due Goal Creatinine. Due on due Goal Review Allergy List. Due on due Goal OARS. Due on due Goal AST (SGOT). Due on due Goal Update Social Hi story. 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 Due on due Goal Tobacco Use. Due on due Goal Medication Recon ciliation. Due on due Goal PHQ-9. Due on du e Goal Height. Due on d ue Goal AUTOMOBILE SALESMAN Scanned. Due on due Goal Weight. Due on d ue Goal Tobacco Use. Due on due Goal Update Social Hi story. Due on due Goal GLASS CYLINDER FLANGER Paperwork. Due on due Goal Order Annual [...] due Goal Creatinine. 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 Due on due Goal ALT (SGPT). Due on due Goal GLASS CYLINDER FLANGER Paperwork. Due on due Goal Update Social Hi story. Due on due Goal Weight. Due on d ue Goal AUTOMOBILE SALESMAN Scanned. Due on due Goal Review Allergy List. Due on due Goal Creatinine. Due on due Goal UDT. Due on due Goal Tobacco Use. Due on due Goal OARS. Due on due Goal AST (SGOT). Due on due Goal ALT (SGPT). Due on due Goal Height. Due on d ue Goal GLASS CYLINDER FLANGER Paperwork. Due on due Goal Order Annual PT. Due on due Goal Medication Recon ciliation. Due on due Goal PHQ-9. Due on du e Goal Tobacco cessation counseling completed Appointment Lior Nashin BOOKED Future Order: Lab Order Drug Pat t Def 22+ Classes (G0483), Ordered on: Ordered Future Order: Lab Order COMPLIAN CE DRUG ANALYSIS, URINE, WITH MED REPORT ([id number]), Ordered on: Ordered Future Order: Lab Order [...] for L knee in the future through [facility].Of note, he has been dealing with some stress regarding his daughter being bullied at school.Reports current medication regimen provides 70% pain relief and allows for increased functionality. Presents with surplus of prescribed medication. Continues to utilize [place] 5-325mg with moderate benefit. Denies OIC or [...] knee was unable to be completed at [facility], d/t not having correct equipment. Still expresses interest, but would like to complete at [facility] and not [facility]. Hopes to schedule with next in-clinic OV. Plans to have arthroscopic surgery for L knee in the future through [facility].Continues to have issues with WC.Reports current medication regimen provides 75% pain relief and allows for increased functionality. Presents with surplus of prescribed medication. Continues to utilize [place] 5-325mg with moderate benefit. Denies OIC or [...] have arthroscopic surgery in the future through [facility].Reports current medication regimen provides 80% pain relief and allows for increased functionality. Presents on track with prescribed medication. Continues to utilize [place] 5-325mg with moderate benefit. Denies OIC or [...] allows for increased functionality. Continues to utilize [place] 5-325mg with moderate benefit. Denies OIC or [...] surplus of prescribed medication. Continues to utilize [place] 5-325mg with moderate benefit. Denies OIC or [...] allows for increased functionality. Continues to utilize [place] 5-325mg with moderate benefit. Denies OIC or [...] allows for increased functionality. Continues to utilize [place] 5-325mg with moderate benefit. Denies OIC or [...] note, details ongoing emotional distress r/t his qcezak-hu-ldx's recent stage 4 cancer diagnosis. Reports current [...] and rest. Knee Pain (comments) Chun is me eting [...] Denies side effects from current medication regimen. Knee Pain Duration: chroni c. Severity level is 8. It occurs constantly and is worsening. Location: bilateral knee. The pain is aching and sharp. The pain is aggravated by climbing (and descending) stairs and walking. The pain is relieved by pain/RX meds, rest and supine. bilateral knee pain Duration: ch ronic. Severity [...] relieved by supine. right knee pain (comments) Chun is meeting with us today via [facility] for follow up and medication [...] his ADL and daily work.Presents with #47 [place] 5/325mg - on track. Reports current medication [...] and medication refill. He presents with #54 [place]- on track. Current medication regimen provides % [...] and medication refill. He presents with #49 [place]- surplus. Current medication regimen provides 75% relief. [...] right knee pain from injection.Presents with #76 [place] - small surplus. Reports current medication regimen [...] and medication refill. He presents with #8 [place]-surplus. Current medication regimen provides 75% relief. Denies [...] benefit for his pain. Underwent PT at [facility] January 2017--not helpful. Tried both steroid injections and ORDOÑEZ injections at [facility] without relief. Reports previous imaging can be found at [facility] and [facility]. Has been taking Tramadol 50mg, averaging approximately 8 or more tablets daily. Notes he has also been taking an old Rx of Vicodin, which he believes provides greater relief than the Tramadol. Chun is interested in recommended treatment adjuncts and would like [facility] to assume management of pain care. 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 Currently utilizing L knee brace. Pain has been worse since [facility].Plans to have arthroscopic surgery in the future through [facility] assessment jail (current) use of opiat e analgesic impression [...] Mental Status Date Cognitive Assessment Orientation - Estill ed to time, place, person, situation. Patient Care Teams Name Effective Dates (start - stop) Status Members No Information
[2023-02-01 21:25] LABS: Basophils Absolute Auto 0.04 K/uL (0.00-0.30); Basophils Percent Auto 0.5 % (0.0-3.0); Eosinophils Absolute Auto 0.11 K/uL (0.00-0.50); Eosinophils Percent Auto 1.3 % (0.0-7.0); Hematocrit 35.4 % (37.0-53.0); Immature Granulocytes Abs Auto 0.08 K/uL (0.00-0.30); Lymphocytes Absolute Auto 2.51 K/uL (0.90-2.90); Mean Corpuscular HGB Conc 34 gm/dL (32-36); Mean Corpuscular Hemoglobin 31 pg (26-34); Mean Corpuscular Volume 91 fL (80-100); Monocytes Percent Auto 6.2 % (0.0-11.0); Neutrophils Absolute Auto 5.11 K/uL (1.7-7.0); Platelet Count* 218 K/uL (140-440); RDW Coefficient of Variation % 12.3 % (11.5-15.5); Red Blood Count 3.91 m/uL (4.30-5.90); White Blood Count* 8.37 K/uL (4.50-11.00)
[2023-02-01 21:47] LABS: Slide Review Reflex No
[2023-02-01 22:03] LABS: Albumin* 4.6 g/dL (3.3-5.0); Chloride* 100 mmol/L (96-114); Sodium* 137 mmol/L (135-149)
[2023-02-01 22:04] LABS: Potassium* 4.4 mmol/L (3.6-5.1)
[2023-02-01 22:06] LABS: Alkaline Phosphatase* 60 U/L (40-150); Amylase* 43 U/L (18-89); Aspartate Amino Transferase* 29 U/L (12-35); Bilirubin Total* 0.6 mg/dL (0.1-1.5); Blood Urea Nitrogen* 23 mg/dL (5-24); Carbon Dioxide* 28 mmol/L (20-32); Creatinine* 1.1 mg/dL (0.5-1.5); Estimated Glomerular Filt Rate 83 ml/min; Glucose* 106 mg/dL (60-115); Total Protein* 7.2 g/dL (6.0-8.3)
[2023-02-01 22:07] LABS: Alanine Aminotransferase* 40 U/L (4-50); Calcium* 9.8 mg/dL (8.4-10.6); Lipase* 53 U/L (23-300)
== END 2023-02-01 15:31 | disposition home or self-care (01) ==
PROVIDERS: PCP Family Medicine; Visit Provider Nurse Practitioner Family
DX: R10.11 Right upper quadrant pain (principal); E11.9 Type 2 diabetes mellitus without complications; I10 Essential (primary) hypertension; E78.00 Pure hypercholesterolemia, unspecified
CPT/HCPCS: 80053; 82150; 83690; 85025

== ENCOUNTER 2023-02-02 07:01 | Outpatient (CLI) | payer OTHER, SELFPAY ==
--- OUTSIDE RECORDS SUMMARY | 2023-02-02 07:03 | XMS_ITS | Continuity of Care Document ---
Author Name Unknown Organization [facility] Address [address] [address] [place] [address] Phone Care Team Providers Care Research Engineer Name Role Phone No Information Unavailable Unavailable Advance Directives Directive Yes / No Effective Date File Name No Information Encounters Encounter Description Practice Location Reason(s) For Visit Diagnoses Date Provider Providers Copied on Encounter [facility], [address] [address], [place], [place], [id number], [place] tel:[phone] No Information No Information Family History Family Member Type Diagnosis Age At Onset No Information Payers Payer name Insurance type Covered green party ID Authoriza tion(s) No Information Social History Type Description Quantity Date Captured Comments Sex Male Smoking Status No Information Chief Complaint And Reason For Visit No Information Reason For Referral Reason For Referral No Information Plan Of Treatment Date Type Action Status No Information History Of Present Illness Encounter Date Complaint History Of Prese nt Illness No Information Functional Status Date Functional Assessmen t No Information Instructions Date Instruction Additional Infor mation No Information Assessments Type Assessment Date No Information Patient Care Teams Name Effective Dates (start - stop) Status Members No Information
--- OUTSIDE RECORDS SUMMARY | 2023-02-02 07:04 | XMS_ITS | Continuity of Care Document ---
Author Name Unknown Organization [facility] al[facility] Address [address] [place] [address] Phone Care Team Providers Care Physical Education Instructor Name Role Phone Murray Garay Unavailable Unavailable [...] Copied on Encounter OFFICE VISIT, EST TELEMEDICINE [facility], [address] [place], [place], [id number] , [place] tel:[phone] [facility] [place] right knee pain (chief complaint) Other chronic painOther chondrocalcinosis , right kneeUnilateral primary osteoarthritis, right kneePain in right kneeCurrent tear of meniscus of left knee, sequelaLong term (current) use of opiate analgesic Apr-0 4-202 3 Jonelle Gao. [address] [place] [address] [address], [place], [place], [id number] , [place]. tel: [phone] Referring Provider: Andrews Wright [facility] [address], [place], [address]. tel:[phone] OFFICE/OUTPAT IENT VISIT, [facility], [address], [place], [id number] , [place] tel: [phone] [facility] right knee pain (chief complaint) Other chronic painOther chondrocalcinosis , right kneeUnilateral primary osteoarthritis, right kneePain in right kneeCurrent tear of meniscus of left knee, sequelaLong term (current) use of opiate analgesic Dec-0 3 Jonelle Gao. [address] [place] [address] [address], [place], [id number] , [place]. tel: [phone] Referring Provider: Andrews Wright [facility] [address], [place], [address]. tel:[phone] [facility], [address], [place], [id number] , [place] tel: [phone] [facility] No Information 0 3 Jonelle Gao. [address] [place] [address] [address], [place], [id number] , [place]. tel: [phone] Referring Provider: Andrews Wright [facility] [address], [place], [address]. tel:[phone] OFFICE VISIT, EST TELEMEDICINE [facility], [address], [place], [id number] , [place] tel: [phone] [facility] [place] right knee pain (chief complaint) Other chronic painOther chondrocalcinosis , right kneeUnilateral primary osteoarthritis, right kneePain in right kneeCurrent tear of meniscus of left knee, sequelaLong term (current) use of opiate analgesic Nov-0 3 Jonelle Gao. [address] [place] [address] [address], [place], [place], [id number] , [place]. tel: [phone] Referring Provider: Caleb Castro, [address] [place], [address]. tel:[phone] OFFICE VISIT, [facility] TELEMEDICINE [facility], [address] [place] [address], [id number] , [place] tel: [phone] [facility] right knee pain (chief complaint) Other chronic painOther chondrocalcinosis , right kneeUnilateral primary osteoarthritis, right kneePain in right kneeCurrent tear of meniscus of left knee, sequelaLong term (current) use of opiate analgesic Oct- 3 Sal Murray. [address] [place] [address] [address], [place], [place], [id number] , [place]. tel: [phone] [facility], [address] [place] [address], [id number] , [place] tel: [phone] [facility] No Information 2 Sal Murray. [address] [place] [address] [address], [place], [place], [id number] , [place]. tel: [phone] OFFICE/OUTPAT IENT VISIT, [facility], [address] [place] [address], [id number] , [place] tel: [phone] [facility] right knee pain (chief complaint) Other chronic painOther chondrocalcinosis , right kneeUnilateral primary osteoarthritis, right kneePain in right kneeCurrent tear of meniscus of left knee, sequelaLong term (current) use of opiate analgesic 2 Sal Murray. [address] [place] [address] [address], [place], [place], [id number] , [place]. tel: [phone] Referring Provider: Andrews Wright, [facility] [address], [place], [address]. tel:[phone] OFFICE VISIT, EST TELEMEDICINE [facility], [address] [place] [address], [id number] , [place] tel: [phone] [facility] [place] right knee pain (chief complaint) Other chronic painOther chondrocalcinosis , right kneeUnilateral primary osteoarthritis, right kneePain in right kneeCurrent tear of meniscus of left knee, sequelaLong term (current) use of opiate analgesic Nov-0 2 Jonelle Gao. [address] [place] [address] [address], [place], [place], [id number] , [place]. tel: [phone] Referring Provider: Caleb Castro, [address] [place], [address]. tel:[phone] OFFICE VISIT, [facility] TELEMEDICINE [facility], [address] [place] [address], [id number] , [place] tel: [phone] [facility] right knee pain (chief complaint) Other chronic painOther chondrocalcinosis , right kneeUnilateral primary osteoarthritis, right kneePain in right kneeCurrent tear of meniscus of left knee, sequelaLong term (current) use of opiate analgesic Jul-0 2 Jonelle Gao. [address] [place] [address] [address], [place], [place], [id number] , [place]. tel: [phone] OFFICE/OUTPAT IENT VISIT, [facility], [address] [place] [address], [id number] , [place] tel: [phone] [facility] right knee pain (chief complaint) Other chronic painOther chondrocalcinosis , right kneeUnilateral primary osteoarthritis, right kneePain in right kneeCurrent tear of meniscus of left knee, sequelaLong term (current) use of opiate analgesic Sep-0 2 Jonelle Gao. [address] [place] [address] [address], [place], [place], [id number] , [place]. tel: [phone] Referring Provider: Andrews Wright, [facility] [address], [place], [address]. tel:[phone] [facility], [address], [place], [id number] , [place] tel: [phone] [facility] No Information Sep-0 2 Jonelle Gao. [address] [place] [address] [address], [place], [place], [id number] , [place]. tel: [phone] Referring Provider: Andrews Wright, [facility] [address], [place], [address]. tel:[phone] OFFICE VISIT, EST TELEMEDICINE [facility], [address] [place] [address], [id number] , [place] tel: [phone] [facility] right knee pain (chief complaint) Other chronic painOther chondrocalcinosis , right kneeUnilateral primary osteoarthritis, right kneePain in right kneeCurrent tear of meniscus of left knee, sequelaLong term (current) use of opiate analgesic May- 2 Jonelle Gao. [address] [place] [address], [place], [place], [id number] , [place]. tel: [phone] OFFICE VISIT, EST [facility], [address] [place] [address], [id number] , [place] tel: [phone] [facility] right knee pain (chief complaint) Other chronic painOther chondrocalcinosis , right kneeUnilateral primary osteoarthritis, right kneePain in right kneeCurrent tear of meniscus of left knee, sequelaLong term (current) use of opiate analgesic Apr-0 2 Sal Murray. [address] [place] [address] [address], [place], [place], [id number] , [place]. tel: [phone] OFFICE VISIT, EST [facility], [address] [place] [address], [id number] , [place] tel: [phone] [facility] Knee Pain (chief complaint) Other chronic painOther chondrocalcinosis , right kneeUnilateral primary osteoarthritis, right kneeCurrent tear of meniscus of left knee, sequelaLong term (current) use of opiate analgesicPain in right knee Jose- 2 Sal Murray. [address] [place] [address] [address], [place], [place], [id number] , [place]. tel: [phone] Referring Provider: Caleb Castro, [address] [place], [address]. tel: [phone] OFFICE VISIT, [facility] TELEMEDICINE [facility], [address] [place] [address], [id number] , [place] tel: [phone] [facility] bilateral knee pain (chief complaint) Other chronic painOther chondrocalcinosis , right kneeUnilateral primary osteoarthritis, right kneeCurrent tear of meniscus of left knee, sequelaLong term (current) use of opiate analgesic May-0 2 Jonelle Gao. [address] [place] [address] [address], [place], [place], [address] , [place]. tel: [phone] OFFICE VISIT, [facility], [address] [place] [address], [id number] , [place] tel: [phone] [facility] bilateral knee pain (chief complaint) Other chronic painOther chondrocalcinosis , right kneeUnilateral primary osteoarthritis, right kneeCurrent tear of meniscus of left knee, sequelaLong term (current) use of opiate analgesic Apr-0 - 2 Sal Murray. [address] [place] [address] [address], [place], [place], [id number] , [place]. tel: [phone] Referring Provider: Caleb Castro, [address] [place] [address], [address]. tel:[phone] OFFICE/OUTPAT IENT VISIT, [facility], [address] [place] [address], [id number] , [place] tel: [phone] [facility] bilateral knee pain (chief complaint) Other chronic painUnilateral primary osteoarthritis, right kneeOther chondrocalcinosis , right kneeLong term (current) use of opiate analgesicCurrent tear of meniscus of left knee, sequela Mar-0 2 Jonelle Gao. [address] [place] [address] [address], [place], [place], [id number] , [place]. tel: [phone] Referring Provider: Andrews Wright, [facility] [address], [place], [address]. tel:[phone] [facility], [address] [place] [address], [id number] , [place] tel: [phone] [facility] [place] No Information 2 Jonelle Gao. [address] [place] [address] [address], [place], [place], [id number] , [place]. tel: [phone] Referring Provider: Caleb Castro, [address] [place] [address], [address]. [phone] OFFICE VISIT, EST TELEMEDICINE [facility], [address] [place] [address], [id number] , [place] tel: [phone] [facility] bilateral knee pain (chief complaint) Other chronic painUnilateral primary osteoarthritis, right kneeOther chondrocalcinosis , right kneeLong term (current) use of opiate analgesicCurrent tear of meniscus of left knee, sequela 2 Sal Murray. [address] [place] [address] [address], [place], [place], [id number] , [place]. tel: [phone] Referring Provider: Caleb Castro, [address] [place] [address], [address]. tel:[phone] OFFICE VISIT, EST TELEMEDICINE [facility], [address] [place] [address], [id number] , [place] tel: [phone] [facility] Knee Pain (chief complaint) Other chronic painUnilateral primary osteoarthritis, right kneeOther chondrocalcinosis , right kneeLong term (current) use of opiate analgesicCurrent tear of meniscus of left knee, sequela 2 Jonelle Gao. [address] [place] [address] [address], [place], [place], [id number] , [place]. tel: [phone] OFFICE VISIT, EST TELEMEDICINE [facility], [address] [place] [address], [id number] , [place] tel: [phone] [facility] bilateral knee pain (chief complaint) Other chronic painUnilateral primary osteoarthritis, right kneeOther chondrocalcinosis , right kneeLong term (current) use of opiate analgesicCurrent tear of meniscus of left knee, sequela 1 Jonelle Gao. [address] [place] [address] [address], [place], [id number] , [place]. tel: [phone] OFFICE VISIT, EST TELEMEDICINE [facility], [address] [place] [address], [id number] , [place] tel: [phone] [facility] bilateral knee pain (chief complaint) Other chronic painUnilateral primary osteoarthritis, right kneeOther chondrocalcinosis , right kneeLong term (current) use of opiate analgesic 1 Salkushal Gao. [address] [place] [address] [address], [place], [id number] , [place]. tel: [phone] Referring Provider: Caleb Castro, [address] [place] [address], [address]. tel:[phone] OFFICE VISIT, EST TELEMEDICINE [facility], [address] [place] [address], [id number] , [place] tel: [phone] [facility] [place] right knee pain (chief complaint) Other chronic painUnilateral primary osteoarthritis, right kneeOther chondrocalcinosis , right kneeLong term (current) use of opiate analgesic Oct-0 - 1 Saljorge Gao. [address] [place] [address] [address], [place], [id number] , [place]. tel: [phone] OFFICE VISIT, EST TELEMEDICINE [facility], [address] [place] [address], [id number] , [place] tel: [phone] [facility] right knee pain (chief complaint) Other chronic painUnilateral primary osteoarthritis, right kneeOther chondrocalcinosis , right kneeLong term (current) use of opiate analgesic Sep- 0- 1 Salkushal Gao. [address] [place] [address] [address], [place], [id number] , [place]. tel: [phone] Referring Provider: Caleb Castro, [address] [place] [address], [address]. tel:[phone] OFFICE VISIT, EST TELEMEDICINE [facility], [address] [place] [address], [id number] , [place] tel: [phone] [facility] right knee pain (chief complaint) Other chondrocalcinosis , right kneeUnilateral primary osteoarthritis, right kneeOther chronic painLong term (current) use of opiate analgesic 1 Sal Murray. [address] [place] [address] [address], [place], [place], [id number] , [place]. tel: [phone] Referring Provider: Caleb Castro, [address] [place] [address], [address]. tel:[phone] [facility], [address] [place] [address], [id number] , [place] tel: [phone] [facility] No Information 1 Nicolas Ellis. [address] [place] [address], [id number] , [place]. tel: [phone] [facility], [address] [place] [address], [id number] , [place] tel: [phone] [facility] No Information 1 Jonelle Gao. [address] [place] [address] [address], [place], [place], [id number] , [place]. tel: [phone] Referring Provider: Caleb Castro, [address] [place] [address], [address]. tel:[phone] OFFICE/OUTPAT IENT VISIT, [facility], [address] [place] [address], [id number] , [place] tel: [phone] [facility] right knee pain (chief complaint) Other chondrocalcinosis , right kneeUnilateral primary osteoarthritis, right kneeOther chronic painLong term (current) use of opiate analgesic 1 Jonelle Gao. [address] [place] [address] [address], [place], [place], [id number] , [place]. tel: [phone] Referring Provider: Andrews Wright [facility] [address], [place], [address]. tel:[phone] OFFICE VISIT, EST TELEMEDICINE [facility], [address] [place] [address], [id number] , [place] tel: [phone] [facility] [place] Knee Pain (chief complaint) Other chondrocalcinosis , right kneeUnilateral primary osteoarthritis, right kneeOther chronic painLong term (current) use of opiate analgesic Jose-0 1 Saljorge Gao. [facility] Pending [facility] To [facility] [address], [place], [place], [id number] , [place]. tel: [phone] Referring Provider: Caleb Castro, [address] [place] [address], [address]. tel:[phone] OFFICE VISIT, EST TELEMEDICINE [facility], [address] [place] [address], [id number] , [place] tel:[phone] [facility] Knee Pain (chief complaint) Other chondrocalcinosis , right kneeUnilateral primary osteoarthritis, right kneeOther chronic painLong term (current) use of opiate analgesic May-0 1 Sal Murray. [address] [place] [address] [address], [place], [place], [id number] , [place]. tel:[phone] Referring Provider: Caleb Castro, [address] [place] [address], [address]. [phone] OFFICE VISIT, EST TELEMEDICINE [facility], [address] [place] [address], [id number] , [place] tel: [phone] [facility] Knee Pain (chief complaint) Other chondrocalcinosis , right kneeUnilateral primary osteoarthritis, right kneeOther chronic painLong term (current) use of opiate analgesic Apr-0 1 Saljorge Gao. [address] [place] [address] [address], [place], [place], [id number] , [place]. tel:[phone] Referring Provider: Caleb Castro, [address] [place] [address], [address]. tel:[phone] OFFICE VISIT, EST TELEMEDICINE [facility], [address] [place] [address], [id number] , [place] tel:[phone] [facility] Knee Pain (chief complaint) Other chondrocalcinosis , right kneeUnilateral primary osteoarthritis, right kneeOther chronic painLong term (current) use of opiate analgesic Dec-0 1 Saljorge Gao. [address] [place] [address] [address], [place], [place], [id number] , [place]. [phone] Referring Provider: Caleb Castro, [address] [place] [address], [address]. [phone] OFFICE VISIT, EST TELEMEDICINE [facility], [address] [place] [address], [id number] , [place] tel:[phone] [facility] Knee Pain (chief complaint) Other chondrocalcinosis , right kneeUnilateral primary osteoarthritis, right kneeOther chronic painLong term (current) use of opiate analgesic Nov- 1 Saljorge Gao. [address] [place] [address] [address], [place], [place], [id number] , [place]. [phone] Referring Provider: Caleb Castro, [address] [place] [address], [address]. [phone] OFFICE VISIT, EST TELEMEDICINE [facility], [address] [place] [address], [id number] , [place] tel:[phone] [facility] Knee Pain (chief complaint) Other chondrocalcinosis , right kneeUnilateral primary osteoarthritis, right kneeOther chronic painLong term (current) use of opiate analgesic Oct-0 1 Jonelle Gao. [address] [place] [address] [address], [place], [place], [id number] , [place]. tel:[phone] Referring Provider: Caleb Castro, [address] [place] [address], [address]. [phone] OFFICE VISIT, EST TELEMEDICINE [facility], [address] [place] [address], [id number] , [place] [phone] [facility] Knee Pain (chief complaint) Other chondrocalcinosis , right kneeUnilateral primary osteoarthritis, right kneeOther chronic painLong term (current) use of opiate analgesic Sep-0 0 Sal Murray. [address] [place] [address] [address], [place], [place], [id number] , [place]. [phone] Referring Provider: Caleb Castro, [address] [place] [address], [address]. tel:[phone] OFFICE VISIT, EST TELEMEDICINE [facility], [address] [place] [address], [id number] , [place] [phone] [facility] Knee Pain (chief complaint) Other chondrocalcinosis , right kneeUnilateral primary osteoarthritis, right kneeOther chronic painLong term (current) use of opiate analgesic Nov-0 0 Sal Murray. [address] [facility] [address], [place], [place], [id number] , [place]. [phone] Referring Provider: Caleb Castro, [address] [place] [address], [address]. tel:[phone] OFFICE VISIT, EST TELEMEDICINE [facility], [address] [place] [address], [id number] , [place] [phone] [facility] Knee Pain (chief complaint) Other chondrocalcinosis , right kneeUnilateral primary osteoarthritis, right kneeOther chronic painLong term (current) use of opiate analgesic 0 Sal Murray. [address] [address] [address], [place], [place], [id number] , [place]. [phone] Referring Provider: Caleb Castro, [address] [place] [address], [address]. tel:[phone] OFFICE VISIT, EST TELEMEDICINE [facility], [address] [place] [address], [id number] , [place] [phone] [facility] Knee Pain (chief complaint) Other chondrocalcinosis , right kneeUnilateral primary osteoarthritis, right kneeOther chronic painLong term (current) use of opiate analgesic Jun- 0 Sal Murray. [address] [facility] [address], [place], [place], [id number] , [place]. [phone] Referring Provider: Caleb Castro, [address] [place] [address], [address]. [phone] OFFICE VISIT, [facility], [address] [place] [address], [id number] , [place] tel:[phone] [facility] [place] Knee Pain (chief complaint) Other chondrocalcinosis , right kneeUnilateral primary osteoarthritis, right kneeOther chronic painLong term (current) use of opiate analgesic 0 Sal Murray. [address] [place] [address] [address], [place], [place], [id number] , [place]. tel:[phone] Referring Provider: Caleb Castro, [address] [place] [address], [address]. tel:[phone] OFFICE VISIT, [facility], [address] [place] [address], [id number] , [place] tel:[phone] [facility] Knee Pain (chief complaint) Other chondrocalcinosis , right kneeUnilateral primary osteoarthritis, right kneeOther chronic painLong term (current) use of opiate analgesic 0 Sal Murray. [address] [place] [address] [address], [place], [place], [id number] , [place]. tel:[phone] Referring Provider: Caleb Castro, [address] [place] [address], [address]. [phone] OFFICE VISIT, [facility], [address] [place] [address], [id number] , [place] tel:[phone] [facility] right knee pain (chief complaint) Other chondrocalcinosis , right kneeUnilateral primary osteoarthritis, right kneeOther chronic painLong term (current) use of opiate analgesic 0 Sal Murray. [address] [place] [address] [address], [place], [place], [id number] , [place]. tel:[phone] Referring Provider: Caleb Castro, [address] [place] [address], [id number]. tel:[phone] OFFICE/OUTPAT IENT VISIT, [facility], [address] [place] [address], [id number] , [place] tel:[phone] [facility] right knee pain (chief complaint) Other chondrocalcinosis , right kneeUnilateral primary osteoarthritis, right kneeOther chronic painLong term (current) use of opiate analgesic May-0 8- 0 Sal Murray. [address] [facility] [address], [place], [place], [id number] , [place]. tel:[phone] Referring Provider: Caleb Castro, [address] [place] [address], [address]. [phone] OFFICE VISIT, [facility], [address] [place] [address], [id number] , [place] tel:[phone] [facility] right knee pain (chief complaint) Other chondrocalcinosis , right kneeUnilateral primary osteoarthritis, right kneeOther chronic painLong term (current) use of opiate analgesic Apr-1 0- 0 Sal Murray. [address] [place] [address] [address], [place], [place], [id number] , [place]. tel:[phone] Referring Provider: Caleb Castro, [address] [place] [address], [id number]. [phone] OFFICE/OUTPAT IENT VISIT, [facility], [address] [place] [address], [id number] , [place] tel:[phone] [facility] right knee pain (chief complaint) snf (current) use of opiate analgesicOther chondrocalcinosis , right kneePain in right kneeUnilateral primary osteoarthritis, right kneeOther chronic pain Dec- 3- 0 Sal Murray. [facility]5 Pending Sale To [facility] [address], [place], [place], [id number] , [place]. [phone] Referring Provider: Andrews Wright, [facility] [address], [place], [address]. [phone] OFFICE/OUTPAT IENT VISIT, [facility], [address] [place] [address], [id number] , [place] [phone] [facility] right knee pain (chief complaint) snf (current) use of opiate analgesicOther chondrocalcinosis , right kneePain in right kneeUnilateral primary osteoarthritis, right kneeOther chronic pain 0 Jonelle Gao. [address], [place], [place], [id number] , [place]. tel:[phone] Referring Provider: Andrews Wright [facility] [address], [place], [address]. tel:[phone] OFFICE/OUTPAT IENT VISIT, [facility], [address] [place], [place], [id number] , [place] tel: [phone] [facility] right knee pain (chief complaint) manager long term care (current) use of opiate analgesicUnilater al primary osteoarthritis, right kneePain in right kneeOther chondrocalcinosis , right kneeOther chronic pain 0 Jonelle Gao. [address], [place], [place], [id number] , [place]. tel:[phone] Referring Provider: Andrews Wright [facility] [address], [place], [address]. tel:[phone] OFFICE/OUTPAT IENT VISIT, [facility], [address] [place], [place], [id number] , [place] tel:[phone] [facility] right knee pain (chief complaint) manager long term care (current) use of opiate analgesicUnilater al primary osteoarthritis, right kneePain in right kneeOther chondrocalcinosis , right kneeOther chronic pain 201 9 Salkushal Gao. [address] [place] [address] [address], [place], [place], [address] , [place]. tel:[phone] Referring Provider: Andrews Wright [facility] [address], [place], [address]. tel:[phone] OFFICE/OUTPAT IENT VISIT, [facility], [address] [place], [place], [id number] , [place] tel:[phone] [facility] Knee Pain (chief complaint) manager long term care (current) use of opiate analgesicOther chondrocalcinosis , right kneePain in right kneeUnilateral primary osteoarthritis, right knee Nov- 5-201 9 Jonelle Gao. [address], [place], [id number] , [place]. tel: [phone] Referring Provider: Andrews Wright [facility] [address], [place], [address]. tel:[phone] OFFICE/OUTPAT IENT VISIT, [facility], [address], [place], [id number] , [place] tel: [phone] [facility] right knee pain (chief complaint) manager long term care (current) use of opiate analgesicOther chondrocalcinosis , right kneeUnilateral primary osteoarthritis, right kneePain in right kneeOther chronic pain Oct- 8-201 9 Jonelle Gao. [address], [place], [id number] , [place]. tel: [phone] Referring Provider: Andrews Wright [facility] [address], [place], [address]. tel:[phone] OFFICE/OUTPAT IENT VISIT, [facility], [address] [place] [address], [id number] , [place] tel: [phone] [facility] right knee pain (chief complaint) snf (current) use of opiate analgesicOther chondrocalcinosis , right kneePain in right kneeUnilateral primary osteoarthritis, right knee Sep-2 0-201 9 Jonelle Gao. [address], [place], [id number] , [place]. tel: [phone] Referring Provider: Andrews Wright [facility] [address], [place], [address]. tel:[phone] OFFICE/OUTPAT IENT VISIT, [facility], [address], [place], [id number] , [place] tel: [phone] [facility] right knee pain (chief complaint) Other chronic painUnilateral primary osteoarthritis, right kneeOther chondrocalcinosis , right kneeLong term (current) use of opiate analgesic 9 Saljorge Gao. [address], [place], [place], [id number] , [place]. tel: [phone] Referring Provider: Andrews Wright [facility] [address], [place], [address]. tel:[phone] OFFICE/OUTPAT IENT VISIT, [facility], [address], [place], [id number] , [place] tel: [phone] [facility] right knee pain (chief complaint) Other chronic painUnilateral primary osteoarthritis, right kneeOther chondrocalcinosis , right kneeLong term (current) use of opiate analgesic 9 Sal Murray. [address] [facility] [address], [place], [place], [id number] , [place]. tel: [phone] Referring Provider: Andrews Wright [facility] [address], [place], [address]. tel:[phone] [facility], [address], [place], [id number] , [place] tel: [phone] [facility] Unilateral primary osteoarthritis, right knee 9 Reynoldsprem [place]. [facility], [address], [place], [address], [place]. tel: [phone] Referring Provider: Andrews Wright [facility] [address], [place], [address]. tel:[phone] OFFICE/OUTPAT IENT VISIT, [facility], [address] [place], [place], [id number] , [place] tel: [phone] [facility] [place] right knee pain (chief complaint) Other chronic painUnilateral primary osteoarthritis, right kneeOther chondrocalcinosis , right kneeLong term (current) use of opiate analgesic 9 Saljorge Gao. [address] [facility] [address], [place], [id number] , [place]. tel:[phone] Referring Provider: Andrews Wright [facility] [address], [place], [address]. tel:[phone] OFFICE/OUTPAT IENT VISIT, EST [facility], [address], [place], [id number] , [place] [phone] [facility] right knee pain (chief complaint) Other chondrocalcinosis , right kneeOther chronic painPain in right kneeLong term (current) use of opiate analgesicUnilater al primary osteoarthritis, right knee 9 Salkushal Gao. [address] [place] [address] [address], [place], [place], [id number] , [place]. tel:[phone] Referring Provider: Andrews Wright [facility] [address], [place], [address]. tel:[phone] OFFICE CONSULTATION [facility], [address] [place], [place], [id number] , [place] [phone] [facility] right knee pain (chief complaint) Other chronic painPain in right kneeOther chondrocalcinosis , right knee 9 Reynolds Thompson. [facility], [address], [place], [address], [place]. tel:[phone] Referring [facility]: [facility] [address], [place], [address]. tel:[phone] Family History Family Member Type Diagnosis Age At Onset No Information Payers Payer name Insurance type Covered green party ID Meng eveangel(s) [facility] [id number] Social History Type Description Quantity Date Captured [...] Of Treatment Date Type Action Status Goal OARS. Due on due Goal FAST FOOD TEAM MEMBER Scanned. Due on due Goal Order Annual PT. Due on due Goal Creatinine. Due on due Goal AST (SGOT). Due on due Goal ALT (SGPT). Due on due Goal GRIDCAP MACHINE OPERATOR Paperwork. Due on due Goal UDT. Due on due Goal Tobacco Use. Due on due Goal Review Allergy List. Due on due Goal Update Social Hi story. Due on due Goal Weight. Due on d ue Goal Lipid panel. Due on due Goal PHQ-9. Due on du e Goal Height. Due on d ue Goal Hepatitis C scre ening. Due on due Goal Medication Recon ciliation. Due on due Goal Unhealthy drug u se screening. Due on due Goal OARS. Due on due Goal UDT. Due on due Goal Creatinine. Due on due Goal ALT (SGPT). Due on due Goal Order Annual PT. Due on due Goal GRIDCAP MACHINE OPERATOR Paperwork. Due on due Goal FAST FOOD TEAM MEMBER Scanned. Due on due Goal AST (SGOT). Due on due Goal Update Social Hi story. Due on due Goal Medication Recon ciliation. Due on due Goal Unhealthy drug u [...] due Goal Creatinine. Due on due Goal FAST FOOD TEAM MEMBER Scanned. Due on due Goal AST (SGOT). Due on due Goal Order Annual PT. Due on due Goal GRIDCAP MACHINE OPERATOR Paperwork. Due on due Goal OARS. Due [...] due Goal Creatinine. Due on due Goal OARS. Due on due Goal AST (SGOT). Due on due Goal FAST FOOD TEAM MEMBER Scanned. Due on due Goal Order Annual PT. Due on due Goal UDT. Due on due Goal ALT (SGPT). Due on due Goal GRIDCAP MACHINE OPERATOR Paperwork. Due on due Goal Medication Recon ciliation. Due on due Goal Review Allergy List. Due on due Goal PHQ-9. Due on du e Goal Tobacco Use. Due on due Goal Weight. Due on d ue Goal Height. Due on d ue Goal Lipid panel. Due on due Goal Update Social Hi story. Due on due Goal Hepatitis C scre ening. Due on due Goal Unhealthy drug u se screening. Due on due Goal Creatinine. Due on due Goal AST (SGOT). Due on due Goal OARS. Due on due Goal ALT (SGPT). Due on due Goal GRIDCAP MACHINE OPERATOR Paperwork. Due on due Goal Order Annual PT. Due on due Goal UDT. Due on due Goal FAST FOOD TEAM MEMBER Scanned. Due on due Goal Review Allergy [...] Social Hi story. Due on due Goal FAST FOOD TEAM MEMBER Scanned. Due on 022 due Goal UDT. Due on due Goal AST (SGOT). Due on due Goal Creatinine. Due on due Goal ALT (SGPT). Due on due Goal GRIDCAP MACHINE OPERATOR Paperwork. Due on due Goal Order Annual [...] Goal Lipid panel. Due on due Goal ALT (SGPT). Due on due Goal Creatinine. Due on due Goal AST (SGOT). Due on due Goal FAST FOOD TEAM MEMBER Scanned. Due on due Goal GRIDCAP MACHINE OPERATOR Paperwork. Due on due Goal Order Annual PT. Due on due Goal UDT. Due on due Goal OARS. Due on [...] C scre ening. Due on due Goal UDT. Due on due Goal ALT (SGPT). Due on due Goal AST (SGOT). Due on due Goal OARS. Due on due Goal Order Annual PT. Due on due Goal GRIDCAP MACHINE OPERATOR Paperwork. Due on due Goal FAST FOOD TEAM MEMBER Scanned. Due on due Goal Creatinine. Due on due Goal Review Allergy List. Due on due Goal PHQ-9. Due on du e Goal Unhealthy drug u se screening. Due on due Goal Medication Recon ciliation. Due on due Goal Hepatitis C scre ening. Due on due Goal Tobacco Use. Due on due Goal Height. Due on d ue Goal Weight. Due on d ue Goal Lipid panel. Due on due Goal Update Social Hi story. Due on due Goal FAST FOOD TEAM MEMBER Scanned. Due on due Goal ALT (SGPT). Due on due Goal AST (SGOT). Due on due Goal GRIDCAP MACHINE OPERATOR Paperwork. Due on due Goal UDT. Due on due Goal Order Annual PT. Due on due Goal OARS. Due on due Goal Creatinine. Due on due Goal PHQ-9. Due on du e Goal Tobacco Use. Due on due Goal Unhealthy drug u se screening. Due on due Goal Review Allergy List. Due on due Goal Hepatitis C scre ening. Due on due Goal Height. Due on d ue Goal Update Social Hi story. Due on due Goal Lipid panel. Due on due Goal Weight. Due on d ue Goal Medication Recon ciliation. Due on due Goal UDT. Due on due Goal Creatinine. Due on due Goal AST (SGOT). Due on due Goal OARS. Due on due Goal Order Annual PT. Due on due Goal FAST FOOD TEAM MEMBER Scanned. Due on due Goal GRIDCAP MACHINE OPERATOR Paperwork. Due on due Goal ALT (SGPT). [...] e Goal UDT. Due on due Goal Creatinine. Due on due Goal AST (SGOT). Due on due Goal OARS. Due on due Goal Order Annual PT. Due on due Goal FAST FOOD TEAM MEMBER Scanned. Due on due Goal GRIDCAP MACHINE OPERATOR Paperwork. Due on due Goal ALT (SGPT). [...] Goal PHQ-9. Due on du e Goal ALT (SGPT). Due on due Goal OARS. Due on due Goal UDT. Due on due Goal GRIDCAP MACHINE OPERATOR Paperwork. Due on due Goal Order Annual PT. Due on due Goal AST (SGOT). Due on due Goal FAST FOOD TEAM MEMBER Scanned. Due on due Goal Creatinine. Due on due Goal PHQ-9. Due on du e Goal Lipid panel. Due on due Goal Height. Due on d ue Goal Medication Recon ciliation. Due on due Goal Weight. Due on d ue Goal Unhealthy drug u se screening. Due on due Goal Hepatitis C scre ening. Due on due Goal Update Social Hi story. Due on due Goal Review Allergy List. Due on due Goal Tobacco Use. Due on due Goal UDT. Due on due Goal Creatinine. Due on due Goal GRIDCAP MACHINE OPERATOR Paperwork. Due on due Goal AST (SGOT). Due on due Goal OARS. Due on due Goal FAST FOOD TEAM MEMBER Scanned. Due on due Goal ALT (SGPT). Due on due Goal Order Annual PT. Due on due Goal Update Social Hi story. Due on due Goal Weight. Due on d ue Goal Unhealthy drug u se screening. Due on due Goal Hepatitis C scre ening. Due on due Goal Lipid panel. Due on due Goal PHQ-9. Due on du e Goal Tobacco Use. Due on due Goal Height. Due on d ue Goal Medication Recon ciliation. Due on due Goal Review Allergy List. Due on due Goal Order Annual PT. Due on due Goal AST (SGOT). Due on due Goal GRIDCAP MACHINE OPERATOR Paperwork. Due on due Goal UDT. Due on due Goal Creatinine. Due on due Goal FAST FOOD TEAM MEMBER Scanned. Due on due Goal OARS. Due on due Goal ALT (SGPT). Due on due Goal Medication Recon ciliation. Due on due Goal Unhealthy drug u [...] due Goal OARS. Due on due Goal FAST FOOD TEAM MEMBER Scanned. Due on due Goal AST (SGOT). Due on due Goal ALT (SGPT). Due on due Goal Order Annual PT. Due on due Goal GRIDCAP MACHINE OPERATOR Paperwork. Due on due Goal UDT. Due on [...] Goal ALT (SGPT). Due on due Goal FAST FOOD TEAM MEMBER Scanned. Due on due Goal Order Annual PT. Due on due Goal OARS. Due on due Goal GRIDCAP MACHINE OPERATOR Paperwork. Due on due Goal Creatinine. Due on [...] Goal Lipid panel. Due on due Goal Unhealthy drug u se screening. Due on due Goal FAST FOOD TEAM MEMBER Scanned. Due on due Goal Creatinine. Due on due Goal UDT. Due on due Goal OARS. Due on due Goal AST (SGOT). Due on due Goal ALT (SGPT). Due on due Goal GRIDCAP MACHINE OPERATOR Paperwork. Due on due Goal Order Annual [...] Goal PHQ-9. Due on du e Goal FAST FOOD TEAM MEMBER Scanned. Due on due Goal Creatinine. Due on due Goal UDT. Due on due Goal OARS. Due on due Goal AST (SGOT). Due on due Goal ALT (SGPT). Due on due Goal GRIDCAP MACHINE OPERATOR Paperwork. Due on due Goal Order Annual PT. Due on due Goal Update Social Hi story. Due on due Goal Weight. Due on d ue Goal Review Allergy List. Due on due Goal Tobacco Use. Due on due Goal Height. Due on d ue Goal FAST FOOD TEAM MEMBER Scanned. Due on due Goal Creatinine. Due on due Goal UDT. Due on due Goal OARS. Due on due Goal AST (SGOT). Due on due Goal ALT (SGPT). Due on due Goal GRIDCAP MACHINE OPERATOR Paperwork. Due on due Goal Order Annual PT. Due on due Goal Update Social Hi story. Due on due Goal Weight. Due on d ue Goal Review Allergy List. Due on due Goal Tobacco Use. Due on due Goal Height. Due on d ue Goal Medication Recon ciliation. Due on due Goal PHQ-9. Due on du e Goal FAST FOOD TEAM MEMBER Scanned. Due on due Goal Creatinine. Due on due Goal UDT. Due on due Goal OARS. Due on due Goal AST (SGOT). Due on due Goal ALT (SGPT). Due on due Goal GRIDCAP MACHINE OPERATOR Paperwork. Due on due Goal Order Annual PT. Due on due Goal Update Social Hi story. Due on due Goal Weight. Due on d ue Goal Review Allergy List. Due on due Goal Tobacco Use. Due on due Goal Height. Due on d ue Goal Medication Recon ciliation. Due on due Goal PHQ-9. Due on du e Goal FAST FOOD TEAM MEMBER Scanned. Due on due Goal Creatinine. Due on due Goal UDT. Due on due Goal OARS. Due on due Goal AST (SGOT). Due on due Goal ALT (SGPT). Due on due Goal GRIDCAP MACHINE OPERATOR Paperwork. Due on due Goal Order Annual PT. Due on due Goal Update Social Hi story. Due on due Goal Weight. Due on d ue Goal Review Allergy List. Due on due Goal Tobacco Use. Due on due Goal Height. Due on d ue Goal Medication Recon ciliation. Due on due Goal PHQ-9. Due on du e Goal FAST FOOD TEAM MEMBER Scanned. Due on due Goal Creatinine. Due on due Goal UDT. Due on due Goal OARS. Due on due Goal AST (SGOT). Due on due Goal ALT (SGPT). Due on due Goal GRIDCAP MACHINE OPERATOR Paperwork. Due on due Goal Order Annual PT. Due on due Goal Update Social Hi story. Due on due Goal Weight. Due on d ue Goal Review Allergy List. Due on due Goal Tobacco Use. Due on due Goal Height. Due on d ue Goal Medication Recon ciliation. Due on due Goal PHQ-9. Due on du e Goal FAST FOOD TEAM MEMBER Scanned. Due on due Goal Creatinine. Due on due Goal UDT. Due on due Goal OARS. Due on due Goal AST (SGOT). Due on due Goal ALT (SGPT). Due on due Goal GRIDCAP MACHINE OPERATOR Paperwork. Due on due Goal Order Annual PT. Due on due Goal Update Social Hi story. Due on due Goal Weight. Due on d ue Goal Review Allergy List. Due on due Goal Tobacco Use. Due on due Goal Height. Due on d ue Goal Medication Recon ciliation. Due on due Goal PHQ-9. Due on du e Goal FAST FOOD TEAM MEMBER Scanned. Due on due Goal Creatinine. Due on due Goal UDT. Due on due Goal OARS. Due on due Goal AST (SGOT). Due on due Goal ALT (SGPT). Due on due Goal GRIDCAP MACHINE OPERATOR Paperwork. Due on due Goal Order Annual PT. Due on due Goal Update Social Hi story. Due on due Goal Weight. Due on d ue Goal Review Allergy List. Due on due Goal Tobacco Use. Due on due Goal Height. Due on d ue Goal Medication Recon ciliation. Due on due Goal PHQ-9. Due on du e Goal FAST FOOD TEAM MEMBER Scanned. Due on due Goal Creatinine. Due on due Goal UDT. Due on due Goal OARS. Due on due Goal AST (SGOT). Due on due Goal ALT (SGPT). Due on due Goal GRIDCAP MACHINE OPERATOR Paperwork. Due on due Goal Order Annual PT. Due on due Goal Update Social Hi story. Due on due Goal Weight. Due on d ue Goal Review Allergy List. Due on due Goal Tobacco Use. Due on due Goal Height. Due on d ue Goal Medication Recon ciliation. Due on due Goal PHQ-9. Due on du e Goal FAST FOOD TEAM MEMBER Scanned. Due on due Goal Creatinine. Due on due Goal UDT. Due on due Goal OARS. Due on due Goal AST (SGOT). Due on due Goal ALT (SGPT). Due on due Goal GRIDCAP MACHINE OPERATOR Paperwork. Due on due Goal Order Annual PT. Due on due Goal Update Social Hi story. Due on due Goal Weight. Due on d ue Goal Review Allergy List. Due on due Goal Tobacco Use. Due on due Goal Height. Due on d ue Goal Medication Recon ciliation. Due on due Goal PHQ-9. Due on du e Goal FAST FOOD TEAM MEMBER Scanned. Due on due Goal Creatinine. Due on due Goal UDT. Due on due Goal OARS. Due on due Goal AST (SGOT). Due on due Goal ALT (SGPT). Due on due Goal GRIDCAP MACHINE OPERATOR Paperwork. Due on due Goal Order Annual PT. Due on due Goal Update Social Hi story. Due on due Goal Weight. Due on d ue Goal Review Allergy List. Due on due Goal Tobacco Use. Due on due Goal Height. Due on d ue Goal Medication Recon ciliation. Due on due Goal PHQ-9. Due on du e Goal FAST FOOD TEAM MEMBER Scanned. Due on due Goal Creatinine. Due on due Goal UDT. Due on due Goal OARS. Due on due Goal AST (SGOT). Due on due Goal ALT (SGPT). Due on due Goal GRIDCAP MACHINE OPERATOR Paperwork. Due on due Goal Order Annual PT. Due on due Goal Update Social Hi [...] Goal PHQ-9. Due on du e Goal FAST FOOD TEAM MEMBER Scanned. Due on due Goal Creatinine. Due on due Goal UDT. Due on due Goal OARS. Due on due Goal AST (SGOT). Due on due Goal ALT (SGPT). Due on due Goal GRIDCAP MACHINE OPERATOR Paperwork. Due on due Goal Order Annual PT. Due on due Goal Tobacco cessation counseling completed Appointment Lior Nashin BOOKED Future Order: Lab Order Drug Pat t Def 22+ Classes (G0483), Ordered on: Ordered Future Order: Lab Order COMPLIAN CE DRUG ANALYSIS, URINE, WITH MED REPORT ([id number]), Ordered on: Ordered Future Order: Lab Order [...] for L knee in the future through [facility].Of note, he has been dealing with some stress regarding his daughter being bullied at school.Reports current medication regimen provides 70% pain relief and allows for increased functionality. Presents with surplus of prescribed medication. Continues to utilize [place] 5-325mg with moderate benefit. Denies OIC or [...] knee was unable to be completed at [facility], d/t not having correct equipment. Still expresses interest, but would like to complete at [facility] and not [facility]. Hopes to schedule with next in-clinic OV. Plans to have arthroscopic surgery for L knee in the future through [facility].Continues to have issues with WC.Reports current medication regimen provides 75% pain relief and allows for increased functionality. Presents with surplus of prescribed medication. Continues to utilize [place] 5-325mg with moderate benefit. Denies OIC or [...] have arthroscopic surgery in the future through [facility].Reports current medication regimen provides 80% pain relief and allows for increased functionality. Presents on track with prescribed medication. Continues to utilize [place] 5-325mg with moderate benefit. Denies OIC or [...] allows for increased functionality. Continues to utilize [place] 5-325mg with moderate benefit. Denies OIC or [...] surplus of prescribed medication. Continues to utilize [place] 5-325mg with moderate benefit. Denies OIC or [...] allows for increased functionality. Continues to utilize [place] 5-325mg with moderate benefit. Denies OIC or [...] allows for increased functionality. Continues to utilize [place] 5-325mg with moderate benefit. Denies OIC or [...] note, details ongoing emotional distress r/t his hxaeaw-pu-mgu's recent stage 4 cancer diagnosis. Reports current [...] Chun is meeting with us today via [facility] for follow up and medication [...] his ADL and daily work.Presents with #47 [place] 5/325mg - on track. Reports current medication [...] and medication refill. He presents with #54 [place]- on track. Current medication regimen provides % [...] and medication refill. He presents with #49 [place]- surplus. Current medication regimen provides 75% relief. [...] right knee pain from injection.Presents with #76 [place] - small surplus. Reports current medication regimen [...] and medication refill. He presents with #8 [place]-surplus. Current medication regimen provides 75% relief. Denies [...] benefit for his pain. Underwent PT at [facility] January 2017--not helpful. Tried both steroid injections and ORDOÑEZ injections at [facility] without relief. Reports previous imaging can be found at [facility] and [facility]. Has been taking Tramadol 50mg, averaging approximately 8 or more tablets daily. Notes he has also been taking an old Rx of Vicodin, which he believes provides greater relief than the Tramadol. Chun is interested in recommended treatment adjuncts and would like [facility] to assume management of pain care. 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 Currently utilizing L knee brace. Pain has been worse since YUNG.Plans to have arthroscopic surgery in the future through [facility] assessment snf (current) use of opiat e analgesic impression [...] Mental Status Date Cognitive Assessment Orientation - Udall ed to time, place, person, situation. Patient Care Teams Name Effective Dates (start - stop) Status Members No Information
--- NOTE | 2023-02-02 07:15 | CRLHL7_ITS ---
For Patients: As a result of the Century Cures Act, medical imaging exams and procedure reports are released immediately into your electronic medical record. You may view this report before your referring provider. If you have questions, please contact your health care provider. INDICATION: RUQ ABDOMINAL PAIN COMPARISON: 12/28/2021 TECHNIQUE: Real time kwan scale imaging and color Doppler analysis was performed of the right upper quadrant. FINDINGS: The patient`s liver is of normal size and has diffusely increased echogenicity. There is a normal appearance of the hepatic IVC and proximal abdominal aorta. There is no evidence of ascites. The gallbladder is of normal size and there is no evidence of intraluminal stones or sludge. The gallbladder wall measures 2 mm in thickness. The common bile duct is of normal size and measures 4 mm in diameter at the level of the jorden hepatis. The pancreas is coarsened, as before. There is no evidence of a stone or hydronephrosis within the right kidney. The right kidney measures 4 cm in length. IMPRESSION: Moderate diffuse hepatic steatosis, similar to the prior exam. Suggestion of chronic pancreatitis. Dictated by Anton Zuniga MD @ 02/02/2023 9:43:59 AM (Electronically Signed)
== END 2023-02-02 07:02 | disposition home or self-care (01) ==
PROVIDERS: PCP Family Medicine; Visit Provider Nurse Practitioner Family
DX: R10.11 Right upper quadrant pain (principal); K76.0 Fatty (change of) liver, not elsewhere classified; K86.1 Other chronic pancreatitis
CPT/HCPCS: 76705

== ENCOUNTER 2023-11-04 08:24 | Outpatient (CLI) | payer OTHER, SELFPAY | END 2023-11-04 08:25 | disposition home or self-care (01) | PROVIDERS: PCP Nurse Practitioner Family; Visit Provider Nurse Practitioner Family | DX: E78.00 Pure hypercholesterolemia, unspecified (principal); I10 Essential (primary) hypertension; E11.9 Type 2 diabetes mellitus without complications; Z79.84 Long term (current) use of oral hypoglycemic drugs; Z13.0 Encounter for screening for diseases of the blood and blood-forming organs and certain disorders involving the immune mechanism; Z13.29 Encounter for screening for other suspected endocrine disorder | CPT/HCPCS: 80053; 80061; 82043; 82570; 84443; 85025 ==

== ENCOUNTER 2023-11-15 07:56 | Outpatient (CLI) | payer OTHER, SELFPAY | END 2023-11-15 07:57 | disposition home or self-care (01) | LOC: KYNREF 17:09 | PROVIDERS: PCP Nurse Practitioner Family; Visit Provider Nurse Practitioner Family | DX: I10 Essential (primary) hypertension (principal); E11.9 Type 2 diabetes mellitus without complications | CPT/HCPCS: 84132 ==

== ENCOUNTER 2024-03-15 15:11 | Outpatient (CLI) | payer OTHER, SELFPAY ==
--- OUTSIDE RECORDS SUMMARY | 2024-03-15 15:13 | XMS_ITS | Clinical Summary ---
Author Organization [facility] Address [place], [place] [address] Care Team Providers Care Ski Maker Wood Name Role Phone Nonstaff, Doctor Unavailable Unavailable Andrews Wright MD Primary Care Provider Allergies Active Allergy Reactions Criticality Noted Date Comments Cephalosporins *Unknown 12/19/2013 Cephalexin Rash 10/05/2006 Medications Medication Sig Dispensed Refills Start Date End Date Status IBUPROFEN 800 MG TAB prn 0 02/15/2007 Active OXYCODONE-ACETAMINO PHEN 5 MG-325 MG TAB take 1 tablet by oral route every 6 hours as needed 0 02/15/2007 Active ATENOLOL 50 MG TAB take 1 tablet (50mg) by oral route once daily 30 0 02/15/2007 Active lisinopril (PRINIVIL; ZESTRIL) 10 mg tabletIndications:h ypertension Take 10 mg by mouth once daily. Indications: HYPERTENSION Active PRAVASTATIN SODIUM (PRAVASTATIN ORAL) Take by mouth. Ac tive traMADol (ULTRAM) 50 mg tablet Take 50 mg by mouth every 6 hours if needed. Active INDOMETHACIN ORAL Take by mouth. Act promise diazepam (VALIUM) 5 mg tablet Take 1 tablet by mouth at bedtime. 6 tablet 0 12/19/2013 Active diazepam (VALIUM) 5 mg tabletIndications:R ight-sided low back pain without sciatica Take 1 tablet by mouth 3 times daily if needed for Muscle Spasm. 6 tablet 0 03/23/2015 Active traMADol (ULTRAM) 50 mg tabletIndications:R ight-sided low back pain without sciatica Take 1 tablet by mouth every 6 hours if needed for Pain. 6 tablet 0 03/23/2015 Active Family History Medical History Relation Name Comments Hypertension Father Hypertension Paternal Grandmother Relation Name Status Comments Father Paternal Grandmother Social History Tobacco Use Types Packs/Day Years Used Date Smoking Tobacco: Every Day Cigarettes 0.5 31.4 Started: 10/21/1992 Alcohol Use Standard Drinks/Week Comments Not Asked 0 (1 standard drink = 0.6 oz pur e alcohol) Sex and Gender Information Value Date Recorded Sex Assigned at Not on file Gender Identity Not on file Sexual Orientation Not on file Obstetrics History Last Filed Vital Signs Vital Sign Reading Time Taken Comments Blood Pressure 150/97 01/02/2018 8:00 PM CDT Pulse 106 01/02/2018 8:05 PM CDT Temperature 36.5 ??C (97.7 ??F) 01/02/2018 5:07 PM CD T Respiratory Rate 16 01/02/2018 8:00 PM CDT Oxygen Saturation 98% 01/02/2018 8:05 PM CDT Inhaled Oxygen Concentration - - Weight 127 kg (280 lb) 01/02/2018 5:07 PM CDT Height 182.9 cm (6') 01/02/2018 5:07 PM CDT Body Mass Index 37.97 01/02/2018 5:07 PM CDT Plan of Treatment Health Maintenance Due Date Last Done Comments Tdap 1986 Depression screening for age 12+ 1987 HIV for age 15-65 1990 BMI (ht and wt on same day) for age 18+ 1993 Hepatitis C screening for ag e 18-79 1993 Tetanus booster 1995 Colonoscopy through age 75 2020 Lipids for age 45-75 2020 COVID-19 vaccine series (2022-24 season) 2023 Influenza for age 9-49 06/03/2024 Pneumococcal series for age 6-64 Aged Out No longer eligible based on patient's age to complete this topic Care Teams Ski Maker Wood Relationship Specialty Start Date End Date Andrews Wright MD [address] [place] [address] PCP - General Family Practice 01/02/18 Nonstaff, Doctor NON STAFF DOCTOR 12/19/13
--- NOTE | 2024-03-15 15:30 | CRLHL7_ITS ---
For Patients: As a result of the Century Cures Act, medical imaging exams and procedure reports are released immediately into your electronic medical record. You may view this report before your referring provider. If you have questions, please contact your health care provider. INDICATION: Back pain. TECHNIQUE Multiplanar multisequence noncontrast MR images of the thoracic spine. COMPARISON None. FINDINGS Mildly exaggerated thoracic kyphosis. Mild biconvex thoracic curvature. Mild chronic anterior wedging of multiple mid and lower thoracic vertebral bodies. No acute fracture or spondylolisthesis. No T1 hypointense lesions. The thoracic cord is normal in signal intensity. Diffuse disc degeneration. Moderately advanced disc height loss at T11-12 associated with wuso-vq-kntgthlv marrow edema. Mild discogenic marrow edema at T8-9. Small paracentral disc protrusions and disc bulging from T4-5 through T10-11 indent the cord and mildly narrow the spinal canal. Mild to moderate bilateral facet arthropathy. No spinal canal or neural foraminal stenosis. IMPRESSION: 1. Multilevel thoracic spondylosis without spinal canal or neural foraminal stenosis. 2. Small multilevel disc protrusions and shallow posterior disc bulging indent the cord and mildly narrow the spinal canal. 3. Multilevel disc height loss associated with discogenic marrow edema at T8-9 and T11-12. Dictated by Gen Chen MD @ 03/16/2024 3:38:46 PM (Electronically Signed)
== END 2024-03-15 15:12 | disposition home or self-care (01) ==
LOC: MRI 15:12
PROVIDERS: PCP Nurse Practitioner Family; Visit Provider Nurse Practitioner Family
DX: M54.6 Pain in thoracic spine (principal); M47.894 Other spondylosis, thoracic region; M51.24 Other intervertebral disc displacement, thoracic region; G89.29 Other chronic pain
CPT/HCPCS: 72146

== ENCOUNTER 2024-11-13 13:24 | Outpatient (CLI) | payer OTHER, SELFPAY | END 2024-11-13 13:25 | disposition home or self-care (01) | LOC: MRI 13:25 | PROVIDERS: PCP Nurse Practitioner Family; Visit Provider Orthopaedic Surgery | DX: M25.562 Pain in left knee (principal); S83.222A Peripheral tear of medial meniscus, current injury, left knee, initial encounter; M94.262 Chondromalacia, left knee; M25.462 Effusion, left knee | CPT/HCPCS: 73721 ==

== ENCOUNTER 2024-11-27 14:53 | Outpatient (CLI) | payer OTHER, SELFPAY | END 2024-11-27 14:54 | disposition home or self-care (01) | PROVIDERS: PCP Nurse Practitioner Family; Visit Provider Nurse Practitioner Family | DX: I10 Essential (primary) hypertension (principal); E11.9 Type 2 diabetes mellitus without complications; Z01.818 Encounter for other preprocedural examination | CPT/HCPCS: 80053; 85025 ==

== ENCOUNTER 2024-12-06 09:05 | Day surgery (SDC) | payer OTHER, SELFPAY ==
[2024-12-06] VITALS (15 sets, daily range): BP systolic 67–126; BP diastolic 36–97; PULSE 65–76; RESP 14–18; TEMP 36.2–37.1; O2SAT 92–98; BMI 37.3
[2024-12-06] MEDS: SODIUM CHLORIDE 0.9 % (FLUSH) 10 ML SYRINGE IVF (09:52)
[2024-12-06] MEDS: 0.9 % SODIUM CHLORIDE 500 ML 500 ML 100 ML IV (09:52)
[2024-12-06] MEDS: CLINDAMYCIN 900 MG/50 ML-D5W 900 MG/50 ML PIGGYBACK 100 MG IVPB (11:05)
[2024-12-06] MEDS: BUPIVACAINE 0.25% 30 ML INJECTION (11:32)
--- NOTE | 2024-12-06 11:34 | P.ORPRC_ITS ---
Procedure Note Date of procedure: 12/06/24 Procedure: PREOPERATIVE DIAGNOSIS: Left knee medial meniscus tear POSTOPERATIVE DIAGNOSIS: Left knee medial meniscus tear NAME OF OPERATION: Left knee arthroscopic partial medial meniscectomy SURGEON: Sergey Morales MD PROFESSOR OF SPORT MANAGEMENT: Mone Garrido PA-C ANESTHESIA: Spinal ESTIMATED BLOOD LOSS: 0 mL COMPLICATIONS: None SPECIMENS: None DRAINS: None PREOPERATIVE ANTIBIOTICS: Ancef 2 gram INDICATIONS: The patient is a 49-year-old with a history of left knee medial pain. MRI scan is consistent with a medial meniscus tear. Despite appropriate nonoperative management, including activity modification, antiinflammatories, glei-jbj-qgiwveo pain medication, bracing, physical therapy, and injections they continue to have pain and disability. Operative intervention was offered. The risks, benefits and expected outcomes were discussed in detail. These included but were not limited to: Infection, bleeding, injury to blood vessel or nerve, venous thromboembolism. All questions were answered to their satisfaction. PROCEDURE: Spinal anesthesia was administered. The patient was placed supine on the operating room table. The left lower extremity was prepped and draped in the usual sterile fashion. The limb was exsanguinated with the Corby bandage. The pneumatic tourniquet was inflated to 300 mmHg. A standard anterolateral portal was established. The arthroscope was introduced. The working portal was established anteromedially. Diagnostic arthroscopy was performed with findings as follows: The suprapatellar pouch is normal. Articular surface on the patella shows focal grade 2/3 exchange trouble shooter the median ridge. Articular surface on the trochlea shows focal grade 2/3 change distally. The medial gutter is normal. The medial compartment shows focal grade 2/3 change on the medial femoral condyle, normal articular cartilage on the medial tibial plateau. The medial meniscus has a complex degenerative tear of the posterior horn. This primarily consists of a small radial tear at the junction of the midbody and posterior horn the goes from the leading edge, near the capsule but not to the capsule. There is some undersurface horizontal cleavage tearing of the posterior horn. Posterior root is intact. The notch shows the ACL to be intact. The lateral compartment shows normal articular cartilage on the lateral femoral condyle and lateral tibial plateau. The lateral meniscus is normal. The lateral gutter is normal. The posterior horn of the medial meniscus was debrided to a stable base using a combination of christoph through both portals. Unstable chondral flaps on the medial femoral condyle, femoral trochlea and patella were debrided with the shaver through both portals, taken to a stable base. Arthroscopic instruments were removed, the portal sites were Steri-Stripped closed, the knee was infiltrated with 30 mL of 0.25% Marcaine without epinephrine. A dry dressing was applied, the tourniquet was released. Sponge and needle counts were correct x 2. The patient tolerated the procedure well. There were no apparent complications. They were carefully transferred to the hospital bed and taken to the postanesthesia care unit in satisfactory condition. PLAN: The patient will be discharged to home. They may weightbear as tolerates. Range of motion will be unrestricted. They will follow up in the office next week for a wound check.
--- NOTE | 2024-12-06 11:36 | SUR.OPER ---
PATIENT QUESTIONS ANSWERED SATISFACTORILY PREOPERATIVELY.? PATIENT BROUGHT TO OR #2 PER CART.? Patient positioned supine on OR #2 bed.? The perioperative?team supported arms bilaterally on arm boards.? Final approval of positioning by surgeon.? CONTINUOUS IRRIGATION OF THE LEFT KNEE DURING THE PROCEDURE WITH NACL.
[2024-12-06] MEDS: PHENYLEPHRINE 100 MCG/ML SYRINGE IVP ×3 (11:46→12:00)
--- NOTE | 2024-12-06 11:49 | P.ANES_ITS ---
Anesthesia Charges Start Date/Time Anesthesia Start Date: 12/06/24 Anesthesia Start Time: 10:39 Stop Date/Time Anesthesia Stop Date: 12/06/24 Anesthesia Stop Time: 11:47 Coding CPT Codes CPT Codes: ANESTH KNEE JOINT SURGERY - 60485 ([id number]) P2 - PATIENT W/MILD SYST DISEASE, QK - CONSUMER EDUCATOR 2-4 CNCRNT ANES PROC, QX - BUILDING RENTAL MANAGER SVC W/ MD MED DIRECTION
--- NOTE | 2024-12-06 11:49 | W.ANESCHARGE ---
Anesthesia Charges Start Date/Time Anesthesia Start Date: 12/06/24 Anesthesia Start Time: 10:39 Stop Date/Time Anesthesia Stop Date: 12/06/24 Anesthesia Stop Time: 11:47 Coding CPT Codes CPT Codes: ANESTH KNEE JOINT SURGERY - 29545 ([id number]) P2 - PATIENT W/MILD SYST DISEASE, QK - BENCH BORING MACHINE OPERATOR 2-4 CNCRNT ANES PROC, QX - ENVIRONMENTAL HEALTH AND SAFETY LEADER SVC W/ MD MED DIRECTION
[2024-12-06] MEDS: 0.9 % SODIUM CHLORIDE 1000 ml 1,000 ML 100 ML IV (11:50)
--- NOTE | 2024-12-06 12:35 | P.ANES_ITS ---
Anesthesia Charges Start Date/Time Anesthesia Start Date: 12/06/24 Anesthesia Start Time: 10:39 Stop Date/Time Anesthesia Stop Date: 12/06/24 Anesthesia Stop Time: 11:47 Coding CPT Codes CPT Codes: ANESTH KNEE JOINT SURGERY - 15837 ([id number]) QK - ROASTER HELPER 2-4 CNCRNT ANES PROC, QX - FIELD MAP EDITOR SVC W/ MD MED DIRECTION, P2 - PATIENT W/MILD SYST DISEASE
--- NOTE | 2024-12-06 12:35 | W.ANESCHARGE ---
Anesthesia Charges Start Date/Time Anesthesia Start Date: 12/06/24 Anesthesia Start Time: 10:39 Stop Date/Time Anesthesia Stop Date: 12/06/24 Anesthesia Stop Time: 11:47 Coding CPT Codes CPT Codes: ANESTH KNEE JOINT SURGERY - 35348 ([id number]) QK - SENIOR WEB ARCHITECT 2-4 CNCRNT ANES PROC, QX - REHAB TECH SVC W/ MD MED DIRECTION, P2 - PATIENT W/MILD SYST DISEASE
--- NOTE | 2024-12-06 12:55 | SUR.PHASEII ---
denies pain, pt states i can't feel my feet yet. able to feel touch to calf and thigh. dressing c/d/i.
== END 2024-12-06 14:00 | disposition home or self-care (01) ==
LOC: OR 09:06
PROVIDERS: PCP Nurse Practitioner Family; Visit Provider Orthopaedic Surgery
PROC: (CPT 29870; principal; 2024-12-06 10:30)
DX: M23.222 Derangement of posterior horn of medial meniscus due to old tear or injury, left knee (principal); M94.262 Chondromalacia, left knee; E11.9 Type 2 diabetes mellitus without complications; I10 Essential (primary) hypertension
CPT/HCPCS: 29881; 01400; 82962; J0665; J0736; J1100; J2250; J2371; J2405; J2704; J3010; J7030

== ENCOUNTER 2025-04-04 07:45 | Outpatient (CLI) | payer OTHER, SELFPAY | END 2025-04-04 07:46 | disposition home or self-care (01) | PROVIDERS: PCP Nurse Practitioner Family; Visit Provider Nurse Practitioner Family | DX: E78.00 Pure hypercholesterolemia, unspecified (principal); I10 Essential (primary) hypertension; E11.9 Type 2 diabetes mellitus without complications | CPT/HCPCS: 80053; 80061; 82043; 82570; 82607; 84443 ==

== ENCOUNTER 2025-08-13 15:55 | Outpatient (CLI) | payer OTHER, SELFPAY | END 2025-08-13 15:56 | disposition home or self-care (01) | LOC: KYNREF 16:01 | PROVIDERS: PCP Nurse Practitioner Family; Visit Provider Nurse Practitioner Family | DX: R07.89 Other chest pain (principal) | CPT/HCPCS: 84484 ==